=== PATIENT | male | born 1990 | race Caucasian/White ===

== ENCOUNTER 2017-01-07 11:31 | Emergency (ER) | payer MEDICAID ==
[2017-01-07 11:52] VITALS: BP 147/118
[2017-01-07] MEDS ORDERED: Ketorolac 60 MG/2 ML SDV IM ONE (12:56)
[2017-01-07] MEDS ORDERED: Cyclobenzaprine 10 MG Tab PO ONE (12:56)
--- NOTE | 2017-01-07 12:58 | EDM.PDOC ---
ED HPI LOWER BACK PAIN/INJURY - General Chief Complaint: Back Pain or Injury Stated Complaint: BACK PAIN/SPASMS Time Seen by Provider: 01/07/17 12:57 Source: Reports: Patient, Family History Limitations: Reports: No limitations - History of Present Illness INITIAL COMMENTS - FREE TEXT/NARRATIVE: Pt bent over to package pick up things off of the floor. He felt something go out and he has had severe pain accross his back since that time. It is a little more on the left and it does go down over the buttock. Timing/Duration: Reports: Hour(s):, Getting worse Location: Reports: lower Place: home Associated Symptoms: Reports: Difficulty walking, Other (Pt is noting severe pain in his lower back. ) - Related Data Allergies/ADRs: Allergies Allergy/AdvReac Type Severity Reaction Status Date / Time No Known Allergies Allergy Verified 01/24/16 15:22 Home Meds: Home Meds NK [No Known Home Meds] 01/24/16 [History] Past Medical History Psychiatric History: Reports: Anxiety - Past Surgical History Other Musculoskeletal Surgeries/Procedures:: Left ACL reconstruction Social & Family History - Family History Cardiac: Reports: Arrhythmia Other Cardiac Family History: Ablation Respiratory: Reports: Asthma Psychiatric: Reports: Anxiety - Tobacco Use Smoking Status *Q: Current Every Day Smoker Years of Tobacco use: 4 Packs/Tins Daily: 0.5 - Recreational Drug Use Recreational Drug Use: Yes Drug Use in Last 12 Months: Yes Recreational Drug Type: Reports: Marijuana/Hashish Recreational Drug Use Frequency: Weekly ED ROS GENERAL - Review of Systems Review Of Systems: See Below Constitutional: Reports: no symptoms HEENT: Reports: No symptoms Respiratory: Reports: No Symptoms Cardiovascular: Reports: No symptoms Endocrine: Reports: no symptoms GI/Abdominal: Reports: No symptoms : Reports: no symptoms ED EXAM,LOWER BACK PAIN/INJURY - Physical Exam Exam: See Below Text/Narrative:: Pt has severe low back pain. This is more on the left and it goes down over the left buttock. He has increased pain when his left leg is lifted. Exam Limited By: No limitations General Appearance: alert, severe distress Ears: normal TMs Nose: normal inspection Throat/Mouth: Normal inspection Head: atraumatic Neck: normal inspection Respiratory/Chest: no respiratory distress Cardiovascular: regular rate, rhythm GI/Abdominal: soft, non tender Rectal (Males) Exam: Deferred Back Exam: other ( tender over the lower back and left buttock area. ) Extremities: normal inspection Course - Vital Signs Last Recorded V/S: Last Vital Signs Temp 36.7 C 01/07/17 11:50 Pulse 92 01/07/17 11:50 Resp 14 01/07/17 11:50 BP 147/118 H 01/07/17 11:50 Pulse Ox 99 01/07/17 11:50 - Orders/Labs/Meds Orders: Active Orders 24 hr Category Date Time Status Lumbar Spine Min 4V [CR] Stat Exams 01/07/17 12:56 Taken Meds: Medications Discontinued Medications Generic Name Dose Route Start Last Admin Trade Name Freq PRN Reason Stop Dose Admin Cyclobenzaprine HCl 10 mg 01/07/17 12:56 01/07/17 13:17 Flexeril PO 01/07/17 12:57 10 mg ONETIME ONE Administration Hydromorphone HCl 1 mg 01/07/17 14:00 01/07/17 14:22 Dilaudid IM 01/07/17 14:01 1 mg ONETIME ONE Administration Hydromorphone HCl 1 mg 01/07/17 14:43 Dilaudid IM 01/07/17 14:44 ONETIME ONE Ketorolac Tromethamine 60 mg 01/07/17 12:56 01/07/17 13:19 Toradol IM 01/07/17 12:57 60 mg ONETIME ONE Administration - Re-Assessments/Exams Free Text/Narrative Re-Assessment/Exam: 01/07/17 14:57 Lumbar spine was obtained which showed good alignmenr and wide open interspaces. Departure - Departure Time of Disposition: 14:58 Disposition: Home, Self-Care 01 Condition: fair Clinical Impression: Lumbar back pain Forms: ED Department Discharge Care Plan Goals: ice to the low back, rest, flexeril 10mg tid, at nite instead of taking one use 1 and1/2. motrin 600mg tid, percocet 5/325 q6h prn for pain, appt in [place] for recheck sunday if not better he may need an MRI - My Orders Last 24 Hours: My Active Orders 01/07/17 12:56 Lumbar Spine Min 4V [CR] Stat - Assessment/Plan Last 24 Hours: My Active Orders 01/07/17 12:56 Lumbar Spine Min 4V [CR] Stat
[2017-01-07] MEDS ORDERED: HYDROmorphone 1 MG/ML Syringe IM ONE ×2 (14:00→14:43)
--- NOTE | 2017-01-08 09:23 | CR ---
Lumbar Spine Min 4V HISTORY: severe pain in lower back. FINDINGS: Lumbar vertebral bodies appear intact and in satisfactory alignment. No compression fracture or dis k space narrowing is seen. Spinous processes, posterior elements, and pedicles appear intact and in satisfactory alignment. Perivertebral soft tissues appear normal. IMPRESSION: No acute lumbar spine abnormality identified.
== END 2017-01-07 15:13 | disposition home or self-care (01) ==
LOC: JP.ED 11:31
DX: M54.5 Low back pain (principal); F17.210 Nicotine dependence, cigarettes, uncomplicated
CPT/HCPCS: 72110; 96372; 99284; A9270; J1170; J1885

== ENCOUNTER 2018-05-26 12:43 | Emergency (ER) | payer MEDICAID ==
[2018-05-26 13:49] VITALS: BP 130/97
--- NOTE | 2018-05-26 14:25 | EDM.PDOC ---
ED HPI GENERAL MEDICAL PROBLEM - General Chief Complaint: Lower Extremity Injury/Pain Stated Complaint: BLOOD CLOT IN LT LEG?? Time Seen by Provider: 05/26/18 14:15 Source of Information: Reports: Patient, RN History Limitations: Reports: No Limitations - History of Present Illness INITIAL COMMENTS - FREE TEXT/NARRATIVE: 27 yo male who lives with his mother and has no doctor presents for L calf pain getting worse over the past week. Does not recall injury. Has no SOB or pleuritic chest pain. Thinks that area is a little swollen. Lives in the [facility]. 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) (none) - Related Data Allergies Allergy/AdvReac Type Severity Reaction Status Date / Time No Known Allergies Allergy Verified 05/26/18 13:39 Home Meds: Home Meds Rivaroxaban [Xarelto] 15 mg PO Q12H #41 tablet 05/26/18 [Rx] Past Medical History Respiratory History: Reports: Asthma Psychiatric History: Reports: Anxiety - Past Surgical History Other Musculoskeletal Surgeries/Procedures:: Left ACL reconstruction Social & Family History - Family History Cardiac: Reports: Arrhythmia Other Cardiac Family History: Ablation Respiratory: Reports: Asthma Psychiatric: Reports: Anxiety - Tobacco Use Smoking Status *Q: Current Every Day Smoker Years of Tobacco use: 3 Packs/Tins Daily: 0.5 Review of Systems - Review of Systems Review Of Systems: See Below Constitutional: Reports: No Symptoms Eyes: Reports: No Symptoms Ears: Reports: No Symptoms Mouth/Throat: Reports: No Symptoms Respiratory: Reports: No Symptoms. Denies: Shortness of Breath, Pleuritic Chest Pain Cardiovascular: Reports: No Symptoms GI/Abdominal: Reports: No Symptoms Musculoskeletal: Reports: Leg Pain (L calf), Other (no swelling of the L ankle or distal leg, calf pain only.) Skin: Reports: Bruising (L leg just below the knee, old) Neurological: Reports: No Symptoms ED EXAM, GENERAL - Physical Exam Exam: See Below Exam Limited By: No Limitations General Appearance: Alert, WD/WN, No Apparent Distress, Obese Eye Exam: Bilateral Eye: Normal Inspection Ears: Normal External Exam, Normal Canal, Hearing Grossly Normal, Normal TMs Ear Exam: Bilateral Ear: Auricle Normal, Canal Normal Nose: Normal Inspection, Normal Mucosa, No Blood Throat/Mouth: Normal Inspection, Normal Lips, Normal Oropharynx, Normal Voice, No Airway Compromise Head: Atraumatic, Normocephalic Neck: Normal Inspection, Supple, Non-Tender Respiratory/Chest: No Respiratory Distress, Lungs Clear, Normal Breath Sounds, No Accessory Muscle Use Cardiovascular: Regular Rate, Rhythm, No Edema Extremities: Leg Pain (L calf tender with no edema distal to the calf. ). No: Limited Range of Motion, Redness Neurological: Alert, Oriented, CN II-XII Intact, Normal Cognition, No Motor/ Sensory Deficits Psychiatric: Normal Affect, Normal Mood Skin Exam: Warm, Dry, Intact, Normal Color, No Rash Course - Vital Signs Last Recorded V/S: Last Vital Signs Temp 36.5 C 05/26/18 13:48 Pulse 89 05/26/18 13:48 Resp 14 05/26/18 13:48 BP 130/97 H 05/26/18 13:48 Pulse Ox 95 05/26/18 13:48 - Orders/Labs/Meds Orders: Active Orders 24 hr Category Date Time Status VL Duplex Lwr Ext Veins Ltd Lt [US] Stat Exams 05/26/18 15:08 Taken Labs: Laboratory Tests 05/26/18 Range/Units 14:20 D-Dimer, Quantitative 800 H (0.0-400.0) ng/mL - Radiology Interpretation Free Text/Narrative:: Venous doppler of L calf-DVT present Departure - Departure Time of Disposition: 16:55 Disposition: Home, Self-Care 01 Condition: Fair Clinical Impression: DVT of leg (deep venous thrombosis) Qualifiers: Affected thrombotic vein of extremity: tibial Chronicity: acute Laterality: left Qualified Code(s): I82.442 - Acute embolism and thrombosis of left tibial vein - Discharge Information *PRESCRIPTION DRUG MONITORING PROGRAM REVIEWED*: Not Applicable *COPY OF PRESCRIPTION DRUG MONITORING REPORT IN PATIENT JOSE: Not Applicable Instructions: Deep Vein Thrombosis Referrals: PCP,None [Primary Care Provider] - Forms: ED Department Discharge Additional Instructions: Take Xarelto 15 mg every 12 hrs with food. Keep leg elevated above your heart as much as possible. Relative rest. Recheck with a doctor of your choice within the week. Return to the ER if you develop chest pain or SOB. Be careful to avoid trauma as you will be at higher risk to bleed while on this medicine. - My Orders Last 24 Hours: My Active Orders 05/26/18 15:08 VL Duplex Lwr Ext Veins Ltd Lt [US] Stat - Assessment/Plan Last 24 Hours: My Active Orders 05/26/18 15:08 VL Duplex Lwr Ext Veins Ltd Lt [US] Stat
[2018-05-26] MEDS ORDERED: Rivaroxaban 15 MG Tab PO SCH (17:00)
== END 2018-05-26 16:58 | disposition home or self-care (01) ==
LOC: JP.ED 12:43
DX: I82.442 Acute embolism and thrombosis of left tibial vein (principal); F17.210 Nicotine dependence, cigarettes, uncomplicated
CPT/HCPCS: 36415; 85379; 93971; 99284; A9270

== ENCOUNTER 2019-01-19 09:49 | Emergency (ER) | payer MEDICAID ==
[2019-01-19 10:52] VITALS: BP 146/96
[2019-01-19] MEDS ORDERED: Ondansetron 4 MG/2 ML SDV IVPUSH ONE (11:11)
[2019-01-19] MEDS ORDERED: MVI, Adult with Vitamin K 10 ML, Thiamine 200 MG, Folic Acid 1 MG, Magnesium Sulfate 2 ... IV ONE ×10 (11:11→11:30)
--- NOTE | 2019-01-19 11:25 | EDM.PDOC ---
ED HPI GENERAL MEDICAL PROBLEM - General Chief Complaint: Gastrointestinal Problem Stated Complaint: VOMITING, TROUBLE BREATHING Time Seen by Provider: 01/19/19 11:18 Source of Information: Reports: Patient, RN Notes Reviewed History Limitations: Reports: No Limitations - History of Present Illness INITIAL COMMENTS - FREE TEXT/NARRATIVE: 28-year-old gentleman presents emergency department today with complaint of nausea and vomiting, he denies any fevers sick contacts states been sick for about 20 hours unable to keep anything down does use a large amount of alcohol - Related Data Allergies Allergy/AdvReac Type Severity Reaction Status Date / Time No Known Allergies Allergy Verified 01/19/19 10:46 Home Meds: Home Meds Rivaroxaban [Xarelto] 20 mg PO DAILY 07/26/18 [History] Past Medical History Cardiovascular History: Reports: Blood Clots/VTE/DVT Respiratory History: Reports: Asthma Neurological History: Reports: Concussion, Migraines Psychiatric History: Reports: Addiction, Anxiety, Depression Hematologic History: Reports: Anticoagulation Therapy - Infectious Disease History Infectious Disease History: Reports: Chicken Pox - Past Surgical History Musculoskeletal Surgical History: Reports: Other (See Below) Other Musculoskeletal Surgeries/Procedures:: Left ACL reconstruction Social & Family History - Family History Cardiac: Reports: Arrhythmia Other Cardiac Family History: Ablation Respiratory: Reports: Asthma Psychiatric: Reports: Anxiety - Tobacco Use Smoking Status *Q: Current Every Day Smoker Years of Tobacco use: 6 Packs/Tins Daily: 1 - Caffeine Use Caffeine Use: Reports: Coffee, Soda - Alcohol Use Number of Drinks Per Day: 10 Date of Last Drink: 01/18/19 - Recreational Drug Use Recreational Drug Type: Reports: Marijuana/Hashish ED ROS GENERAL - Review of Systems Review Of Systems: See Below Constitutional: Reports: No Symptoms HEENT: Reports: No Symptoms Respiratory: Reports: No Symptoms Cardiovascular: Reports: No Symptoms (No blood from) GI/Abdominal: Reports: Abdominal Pain, Nausea, Vomiting : Reports: No Symptoms Musculoskeletal: Reports: No Symptoms ED EXAM, GI/ABD - Physical Exam Exam: See Below Exam Limited By: No Limitations General Appearance: Alert, WD/WN, No Apparent Distress Respiratory/Chest: No Respiratory Distress, Lungs Clear, Normal Breath Sounds, No Accessory Muscle Use, Chest Non-Tender Cardiovascular: Regular Rate, Rhythm, No Murmur GI/Abdominal Exam: Normal Bowel Sounds, Soft, Non-Tender Course - Vital Signs Last Recorded V/S: Last Vital Signs Temp 98.5 F 01/19/19 10:53 Pulse 119 H 01/19/19 10:53 Resp 20 01/19/19 10:53 BP 146/96 H 01/19/19 10:53 Pulse Ox 96 01/19/19 10:53 - Orders/Labs/Meds Labs: Laboratory Tests 01/19/19 01/19/19 01/19/19 Range/Units 11:15 11:15 11:15 WBC 10.3 (4.5-11.0) K/uL RBC 4.52 (4.30-5.90) M/uL Hgb 15.9 H (12.0-15.0) g/dL Hct 47.1 (40.0-54.0) % MCV 104 H (80-98) fL MCH 35 H (27-31) pg MCHC 34 (32-36) % Plt Count 267 (150-400) K/uL Neut % (Auto) 85 H (36-66) % Lymph % (Auto) 9 L (24-44) % [place] % (Auto) 6 (2-6) % Eos % (Auto) 0 L (2-4) % Baso % (Auto) 0 (0-1) % D-Dimer, Quantitative (0.0-400.0) ng/mL Sodium 138 L (140-148) mmol/L Potassium 3.5 L (3.6-5.2) mmol/L Chloride 93 L (100-108) mmol/L Carbon Dioxide 29 (21-32) mmol/L Anion Gap 19.5 H (5.0-14.0) mmol/L BUN 7 (7-18) mg/dL Creatinine 1.4 H (0.8-1.3) mg/dL Est Cr Clr Drug Dosing 95.57 mL/min Estimated GFR (MDRD) > 60 (>60) Glucose 91 (74-106) mg/dL Lactic Acid 8.0 H (0.4-2.0) mmol/L Calcium 9.9 (8.5-10.1) mg/dL Total Bilirubin 3.1 H (0.2-1.0) mg/dL AST 100 H (15-37) U/L ALT 69 (12-78) U/L Alkaline Phosphatase 83 (46-116) U/L Total Protein 7.9 (6.4-8.2) g/dL Albumin 3.7 (3.4-5.0) g/dL Globulin 4.2 H (2.3-3.5) g/dL Albumin/Globulin Ratio 0.9 L (1.2-2.2) Urine Color Urine Appearance Urine pH (4.5-8.0) Ur Specific [place] (1.008-1.030) Urine Protein (NEGATIVE) mg/dL Urine Glucose (UA) (NEGATIVE) mg/dL Urine Ketones (NEGATIVE) mg/dL Urine Occult Blood (NEGATIVE) Urine Nitrite (NEGAITVE) Urine Bilirubin (NEGATIVE) Urine Urobilinogen (NORMAL) mg/dL Ur Leukocyte Esterase (NEGATIVE) Urine RBC (0-5) Urine WBC (0-5) Ur Epithelial Cells Amorphous Sediment Urine Bacteria Urine Mucus Urine Other 01/19/19 01/19/19 Range/Units 15:07 15:26 WBC (4.5-11.0) K/uL RBC (4.30-5.90) M/uL Hgb (12.0-15.0) g/dL Hct (40.0-54.0) % MCV (80-98) fL MCH (27-31) pg MCHC (32-36) % Plt Count (150-400) K/uL Neut % (Auto) (36-66) % Lymph % (Auto) (24-44) % Heard % (Auto) (2-6) % Eos % (Auto) (2-4) % Baso % (Auto) (0-1) % D-Dimer, Quantitative < 100 (0.0-400.0) ng/mL Sodium (140-148) mmol/L Potassium (3.6-5.2) mmol/L Chloride (100-108) mmol/L Carbon Dioxide (21-32) mmol/L Anion Gap (5.0-14.0) mmol/L BUN (7-18) mg/dL Creatinine (0.8-1.3) mg/dL Est Cr Clr Drug Dosing mL/min Estimated GFR (MDRD) (>60) Glucose (74-106) mg/dL Lactic Acid (0.4-2.0) mmol/L Calcium (8.5-10.1) mg/dL Total Bilirubin (0.2-1.0) mg/dL AST (15-37) U/L ALT (12-78) U/L Alkaline Phosphatase (46-116) U/L Total Protein (6.4-8.2) g/dL Albumin (3.4-5.0) g/dL Globulin (2.3-3.5) g/dL Albumin/Globulin Ratio (1.2-2.2) Urine Color [place] Urine Appearance Clear Urine pH 8.0 (4.5-8.0) Ur Specific [place] 1.015 (1.008-1.030) Urine Protein Negative (NEGATIVE) mg/dL Urine Glucose (UA) Normal (NEGATIVE) mg/dL Urine Ketones 15 H (NEGATIVE) mg/dL Urine Occult Blood Negative (NEGATIVE) Urine Nitrite Negative (NEGAITVE) Urine Bilirubin Negative (NEGATIVE) Urine Urobilinogen Normal (NORMAL) mg/dL Ur Leukocyte Esterase Small (NEGATIVE) Urine RBC Not seen (0-5) Urine WBC 5-10 H (0-5) Ur Epithelial Cells Few Amorphous Sediment Not seen Urine Bacteria Few Urine Mucus Moderate Urine Other Meds: Medications Discontinued Medications Generic Name Dose Route Start Last Admin Trade Name Freq PRN Reason Stop Dose Admin Benzocaine/Menthol 1 lozenge 01/19/19 16:22 Cepacol Sore Throat MUCMEM 01/19/19 16:23 NOW STA Multivitamins/Minerals 10 ml/ 1,016.2 mls @ 500 mls/hr 01/19/19 11:30 11:37 Thiamine HCl 200 mg/ Folic IV 01/19/19 13:31 500 mls/hr Acid 1 mg/ Magnesium Sulfate 2 ONETIME ONE Administration gm/ Dextrose/Lactated Ringer' s Lactated Ringer's 1,000 mls @ 999 mls/hr 01/19/19 13:40 01/19/19 13:45 Ringers, Lactated IV 01/19/19 14:40 999 mls/hr BOLUS ONE Administration Lactated Ringer's 1,000 mls @ 999 mls/hr 01/19/19 14:42 Ringers, Lactated IV 01/19/19 15:42 BOLUS ONE Ondansetron HCl 4 mg 01/19/19 11:11 01/19/19 11:37 Zofran IVPUSH 01/19/19 11:12 4 mg ONETIME ONE Administration Departure - Departure Time of Disposition: 16:30 Disposition: Home, Self-Care 01 Condition: Good Clinical Impression: Gastroenteritis - Discharge Information Referrals: PCP,None [Primary Care Provider] - Forms: ED Department Discharge Additional Instructions: Continue to use Zofran as needed for nausea and vomiting symptoms, Please followup with your primary care provider in 3-5 days if not better, please call return to the emergency department with worsening of symptoms. - Assessment/Plan Plan: Assessment Acuity = acute Site and laterality = gastroenteritis complicated in a patient with history of significant alcohol abuse Etiology = unknown etiology Manifestations = nausea, vomiting, dehydration Location of injury = Home Lab values = d-dimer is negative CBC unremarkable creatinine elevated to 1.4 consistent with acute renal failure stage GII lactic acid elevated 8.0 consistent with nausea and vomiting total bilirubin elevated 3.1 consistent hyperbilirubinemia Plan Good relief with Zofran and 2 L of fluids plan is discharge home with Zofran 4 mg ODT 1 tab by mouth 3 times a day when necessary total #10 follow-up primary care 3-5 days if no improvement This note was dictated using LUMOback voice recognition software please call with any questions on syntax or grammar.
[2019-01-19] MEDS ORDERED: Lactated Ringers 1,000 ML IV ONE ×2 (13:40→14:42)
[2019-01-19] MEDS ORDERED: Benzocaine/Cetylpyridinium/Menthol Lozenge MUCMEM STA (16:22)
== END 2019-01-19 16:49 | disposition home or self-care (01) ==
LOC: JP.ED 09:49
DX: K52.9 Noninfective gastroenteritis and colitis, unspecified (principal); F17.210 Nicotine dependence, cigarettes, uncomplicated
CPT/HCPCS: 36415; 80053; 81001; 83605; 85025; 85379; 96361; 96365; 96366; 96375; 99284; A9270; J2405; J3411; J3475; J7042; J7120; J3490

== ENCOUNTER 2019-03-22 12:53 | Emergency (ER) | payer MEDICAID ==
[2019-03-22 13:41] VITALS: BP 140/92
--- NOTE | 2019-03-22 13:49 | EDM.PDOC ---
ED HPI GENERAL MEDICAL PROBLEM - General Chief Complaint: Lower Extremity Injury/Pain Stated Complaint: CONCERNED ABOUT BLOOD CLOT Time Seen by Provider: 03/22/19 13:47 Source of Information: Reports: Patient History Limitations: Reports: No Limitations - History of Present Illness INITIAL COMMENTS - FREE TEXT/NARRATIVE: about 6 monthes ago pt had a blood clot in his left lower leg. He was placed on xrelto and still is on this. he has alot of swelling in the left leg and now this has become painful. Onset: Gradual, Other (last 2-3 days. ) Duration: Hour(s): Location: Reports: Lower Extremity, Left Associated Symptoms: Reports: No Other Symptoms Left Lower Leg Pain Score (Numeric/FACES): 5 - Related Data Allergies Allergy/AdvReac Type Severity Reaction Status Date / Time No Known Allergies Allergy Verified 01/19/19 10:46 Home Meds: Home Meds Rivaroxaban [Xarelto] 20 mg PO DAILY 07/26/18 [History] Past Medical History Cardiovascular History: Reports: Blood Clots/VTE/DVT Respiratory History: Reports: Asthma Neurological History: Reports: Concussion, Migraines Psychiatric History: Reports: Addiction, Anxiety, Depression Hematologic History: Reports: Anticoagulation Therapy - Infectious Disease History Infectious Disease History: Reports: Chicken Pox - Past Surgical History Musculoskeletal Surgical History: Reports: Other (See Below) Other Musculoskeletal Surgeries/Procedures:: Left ACL reconstruction Social & Family History - Family History Cardiac: Reports: Arrhythmia Other Cardiac Family History: Ablation Respiratory: Reports: Asthma Psychiatric: Reports: Anxiety - Tobacco Use Smoking Status *Q: Current Every Day Smoker Years of Tobacco use: 9 Packs/Tins Daily: 1 - Caffeine Use Caffeine Use: Reports: Coffee - Recreational Drug Use Recreational Drug Use: No Review of Systems - Review of Systems Review Of Systems: See Below Constitutional: Reports: No Symptoms Eyes: Reports: No Symptoms Ears: Reports: No Symptoms Nose: Reports: No Symptoms Mouth/Throat: Reports: No Symptoms Respiratory: Reports: No Symptoms Cardiovascular: Reports: No Symptoms GI/Abdominal: Reports: No Symptoms Musculoskeletal: Reports: Other ( swelling and tenderness in the left lower leg. 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 ) Neurological: Reports: No Symptoms Psychiatric: Reports: No Symptoms ED EXAM, GENERAL - Physical Exam Exam: See Below Free Text/Narrative:: pt arrived with pain in his left lower leg he has sig swelling that did not go down during the nite. He had a blood clot in his leg and he is on xarelto. Exam Limited By: No Limitations General Appearance: Alert, Moderate Distress Ears: Normal TMs Nose: Normal Inspection Throat/Mouth: Normal Inspection Head: Atraumatic Neck: Normal Inspection Respiratory/Chest: No Respiratory Distress Cardiovascular: Regular Rate, Rhythm GI/Abdominal: Soft, Non-Tender, No Abnormal Bruit (Male) Exam: Deferred Rectal (Males) Exam: Deferred Extremities: Other (left leg is swollen and is tender to palpate , He has lot of tenderness behind his knee. ) Neurological: Alert, Oriented, Normal Cognition Psychiatric: Normal Affect Course - Vital Signs Last Recorded V/S: Last Vital Signs Temp 37.1 C 03/22/19 13:40 Pulse 108 H 03/22/19 13:40 Resp 16 03/22/19 13:40 BP 140/92 H 03/22/19 13:40 Pulse Ox 96 03/22/19 13:40 - Orders/Labs/Meds Labs: Laboratory Tests 03/22/19 03/22/19 Range/Units 14:26 14:26 WBC 6.6 (4.5-11.0) K/uL RBC 4.27 L (4.30-5.90) M/uL Hgb 14.9 (12.0-15.0) g/dL Hct 43.5 (40.0-54.0) % MCV 102 H (80-98) fL MCH 35 H (27-31) pg MCHC 34 (32-36) % Plt Count 240 (150-400) K/uL Neut % (Auto) 57 (36-66) % Lymph % (Auto) 30 (24-44) % [place] % (Auto) 9 H (2-6) % Eos % (Auto) 3 (2-4) % Baso % (Auto) 1 (0-1) % Sodium 142 (140-148) mmol/L Potassium 3.4 L (3.6-5.2) mmol/L Chloride 102 (100-108) mmol/L Carbon Dioxide 32 (21-32) mmol/L Anion Gap 11.4 (5.0-14.0) mmol/L BUN 4 L (7-18) mg/dL Creatinine 1.0 (0.8-1.3) mg/dL Est Cr Clr Drug Dosing 133.79 mL/min Estimated GFR (MDRD) > 60 (>60) Glucose 119 H (74-106) mg/dL Calcium 8.9 (8.5-10.1) mg/dL Total Bilirubin 1.1 H D (0.2-1.0) mg/dL AST 201 H D (15-37) U/L ALT 120 H (12-78) U/L Alkaline Phosphatase 94 (46-116) U/L Total Protein 7.3 (6.4-8.2) g/dL Albumin 3.4 (3.4-5.0) g/dL Globulin 3.9 H (2.3-3.5) g/dL Albumin/Globulin Ratio 0.9 L (1.2-2.2) - Re-Assessments/Exams Free Text/Narrative Re-Assessment/Exam: 03/22/19 15:29 pt had a US of the left leg which was swollwn. This was neg for dvt. He has evidence of the old clot. Pt does have elevated liver enzymes. 03/22/19 15:33 03/22/19 15:40 pt was previously scheduled for surgery on his veins with Dr Mas. Pt quit drinking and is now back drinking again. His liver enzymes are up. He was informed of that. 03/22/19 15:42 03/28/19 07:11 Departure - Departure Time of Disposition: 15:43 Disposition: Home, Self-Care 01 Condition: Fair Clinical Impression: Cellulitis of left leg - Discharge Information Instructions: Cellulitis, Adult, [id number] Referrals: PCP,None [Primary Care Provider] - Forms: ED Department Discharge Care Plan Goals: no work for the next 2 days, elevate leg, moit warm packs to the area, keflex 500mg tid, appt with Dr Mas, cont xarelto. -- refill given. tylenol for discomfort.
--- NOTE | 2019-03-22 15:54 | CRLUS ---
INDICATION: Swelling and pain of left lower extremity TECHNIQUE: Ultrasound venous duplex lower left extremity. Compression venous exam was performed using epps-scale, color Doppler, and spectral Doppler analysis. COMPARISON: None. FINDINGS: Sonographic imaging demonstrates the left common femoral, deep femoral, femoral, popliteal, posterior tibial and greater saphenous and the contralateral right common femoral veins to be fully compressible with normal color Doppler blood flow. IMPRESSION: No evidence of left lower extremity deep venous thrombosis. Dictated by Kathrin Sarabia MD @ 03/22/2019 3:52:45 PM Dictated by: Kathrin Sarabia MD @ 03/22/2019 15:52:56 (Electronically Signed)
== END 2019-03-22 15:58 | disposition home or self-care (01) ==
LOC: JP.ED 12:53
DX: L03.116 Cellulitis of left lower limb (principal); J45.909 Unspecified asthma, uncomplicated; F41.9 Anxiety disorder, unspecified; F32.9 Major depressive disorder, single episode, unspecified; F17.210 Nicotine dependence, cigarettes, uncomplicated; Z79.01 Long term (current) use of anticoagulants
CPT/HCPCS: 36415; 80053; 85025; 93971-LT; 99284-25

== ENCOUNTER 2019-06-07 12:44 | Inpatient (IN) | payer MEDICAID ==
[2019-06-07] MEDS ORDERED: Thiamine 100 MG Tab PO ONE (13:11)
[2019-06-07] MEDS ORDERED: Magnesium Oxide 400 MG Tab PO ONE (13:11)
[2019-06-07] MEDS ORDERED: Lactated Ringers 1,000 ML IV SCH (13:15)
[2019-06-07] MEDS ORDERED: Metoclopramide 10 MG/2 ML SDV IVPUSH ONE (13:17)
[2019-06-07] MEDS ORDERED: Sucralfate Suspension 1 GM/10 ML Cup PO ONE (13:18)
[2019-06-07] MEDS ORDERED: LORazepam 2 MG/ML SDV IVPUSH ONE ×2 (13:20→16:05)
--- NOTE | 2019-06-07 13:21 | EDM.PDOC ---
ED HPI GENERAL MEDICAL PROBLEM - General Chief Complaint: Abdominal Pain Stated Complaint: DEHYDRATED, VOMITING, YELLOW SKIN Time Seen by Provider: 06/07/19 13:20 Source of Information: Reports: Patient History Limitations: Reports: No Limitations - History of Present Illness INITIAL COMMENTS - FREE TEXT/NARRATIVE: Alert 28 yo male whom presents for abdominal discomfort, nausea. vomiting and yellowish discoloration of the skin. Patient is a daily alcohol drinker more than 1 liter per day for more than 4 years. Patient describes abdominal pain and aching intermittent and right upper abdomen and periumbilical area. Patient 's last alcohol drink was last evening unsure of time. Patient attempted to drink alcohol this am but vomited. Patient denies history of alcohol withdrawal but noted sweating and auditory hallucination overnight (her voices calling his name). Patient initially denied constipation or diarrhea but after further questioning her has had BM which are mucus for the last 2-3 days. Patient had diarrhea the week prior. Patient has had symptoms the last 2-3 days but after further questioning symptoms have been present for more than 2 weeks. Patient denies fever, chills or URI symptoms. Patient has had a cough for the last week which is not productive but coughing to the point of vomiting. Patient has noted painful calves the last 2-3 days. Patient's appetite has been decreased for the last months. Patient complains of nausea, stomach discomfort but epigastric right upper abdomen and haven umbilical area. Patient has had swelling in bilateral lower legs. He has had rashes and open wound which do not heal well in his lower abdomen. Abdominal Pain Score (Numeric/FACES): 6 - Related Data Allergies Allergy/AdvReac Type Severity Reaction Status Date / Time No Known Allergies Allergy Verified 06/07/19 13:00 Home Meds: Home Meds Rivaroxaban [Xarelto] 20 mg PO DAILY 07/26/18 [History] Past Medical History Cardiovascular History: Reports: Blood Clots/VTE/DVT Respiratory History: Reports: Asthma Neurological History: Reports: Concussion, Migraines Psychiatric History: Reports: Addiction, Anxiety, Depression Hematologic History: Reports: Anticoagulation Therapy - Infectious Disease History Infectious Disease History: Reports: Chicken Pox - Past Surgical History Musculoskeletal Surgical History: Reports: Other (See Below) Other Musculoskeletal Surgeries/Procedures:: Left ACL reconstruction Social & Family History - Family History Cardiac: Reports: Arrhythmia Other Cardiac Family History: Ablation Respiratory: Reports: Asthma Psychiatric: Reports: Anxiety - Tobacco Use Smoking Status *Q: Current Every Day Smoker Years of Tobacco use: 9 Packs/Tins Daily: 1 - Caffeine Use Caffeine Use: Reports: Soda - Alcohol Use Days Per Week of Alcohol Use: 7 Number of Drinks Per Day: 20 Total Drinks Per Week: 140 Date of Last Drink: 06/06/19 Time of Last Drink: 16:00 - Recreational Drug Use Recreational Drug Use: Yes Recreational Drug Type: Reports: Marijuana/Hashish Recreational Drug Use Frequency: Socially ED ROS GENERAL - Review of Systems Review Of Systems: ROS reveals no pertinent complaints other than HPI. (limited due to patient's general malaise and discomfort) Constitutional: Reports: Chills, Malaise, Weakness, Diaphoresis, Decreased Appetite HEENT: Reports: No Symptoms, Other (yellowing of sclera) Respiratory: Reports: No Symptoms Cardiovascular: Reports: Edema, Lightheadedness, Palpitations Endocrine: Reports: Fatigue GI/Abdominal: Reports: Abdominal Pain, Anorexia, Decreased Appetite, Nausea, Vomiting : Reports: No Symptoms Musculoskeletal: Reports: Leg Pain, Joint Swelling Skin: Reports: Jaundice Neurological: Reports: Headache, Difficulty Walking, Weakness, Other ( ligthheadedness ). Denies: Dizziness, Syncope Psychiatric: Reports: Anxiety Hematologic/Lymphatic: Reports: No Symptoms Immunologic: Reports: No Symptoms ED EXAM, GI/ABD - Physical Exam Exam: See Below Exam Limited By: Physical Impairment General Appearance: Alert, WD/WN, Moderate Distress, Obese, Other (jaundice and scleral icterus ) Ears: Normal External Exam, Hearing Grossly Normal Nose: Normal Inspection, Normal Mucosa Throat/Mouth: Normal Inspection (dry ), Normal Lips, Normal Teeth, Normal Gums, Normal Oropharynx, Normal Voice, No Airway Compromise Head: Atraumatic, Normocephalic Neck: Normal Inspection, Supple, Non-Tender, Full Range of Motion Respiratory/Chest: No Respiratory Distress, Lungs Clear, Normal Breath Sounds, No Accessory Muscle Use, Chest Non-Tender Cardiovascular: Normal Peripheral Pulses, Regular Rate, Rhythm, Tachycardia. No : No Edema GI/Abdominal Exam: Soft, Tender (epigastric, right upper and periumbilical abdomen), Hepatomegaly. No: Guarding, Rigid, Rebound (Male) Exam: Deferred Rectal (Males) Exam: Deferred Back Exam: Normal Inspection, Full Range of Motion, NT Extremities: Normal Inspection, Normal Range of Motion, No Pedal Edema, Normal Capillary Refill, Pedal Edema, Leg Pain (calf discomfort) Neurological: Alert, Oriented, CN II-XII Intact, Normal Cognition, Normal Reflexes, No Motor/Sensory Deficits, Abnormal Gait Psychiatric: Flat Affect Skin Exam: Warm, Dry, Jaundice EKG INTERPRETATION EKG Date: 06/07/19 Time: 13:55 Rhythm: Other (Sinus tachycardia) P-Wave: Present QRS: Normal ST-T: Other (nonspecific changes in pericordial LEADS) QT: Prolonged (501) Comparison: NA - No Prior EKG Course - Vital Signs Last Recorded V/S: Last Vital Signs Temp 36.7 C 06/07/19 20:00 Pulse 103 H 06/07/19 22:00 Resp 15 06/07/19 22:00 BP 132/78 06/07/19 22:00 Pulse Ox 94 L 06/07/19 22:00 - Orders/Labs/Meds Orders: Active Orders 24 hr Category Date Time Status Cardiac Monitoring [RC] .As Directed Care 06/07/19 13:11 Inactive Vital Signs [RC] Q1H Care 06/07/19 13:12 Inactive CULTURE BLOOD [BC] Urgent Lab 06/07/19 13:30 Received CULTURE BLOOD [BC] Urgent Lab 06/07/19 13:37 Received Blood Culture x2 Reflex Set [OM.PC] Urgent Oth 06/07/19 13:12 Ordered EKG 12 Lead [EK] Urgent Ther 06/07/19 13:17 Stop Req Medication Orders Apixaban (Eliquis) 5 mg PO BID [facility] Last Admin: 06/07/19 21:39 Dose: 5 mg Folic Acid (Folic Acid) 1 mg PO DAILY [facility] Gabapentin (Neurontin) 400 mg PO TID [facility] Stop: 06/12/19 14:01 Last Admin: 06/07/19 21:38 Dose: 400 mg Magnesium Sulfate 2 gm/ Premix 50 mls @ 12.5 mls/hr IV Q6H [facility] Stop: 06/08/19 12:59 Last Admin: 06/07/19 21:40 Dose: 12.5 mls/hr Potassium Chloride/Sodium Chloride (Normal Saline With 20 Meq Kcl) 1,000 mls @ 125 mls/hr IV ASDIRECTED [facility] Last Admin: 06/07/19 22:16 Dose: 125 mls/hr Ibuprofen (Motrin) 600 mg PO Q6H PRN PRN Reason: Pain/Fever Lorazepam (Ativan) 0.5 mg IVPUSH Q4H PRN PRN Reason: Nausea/Vomiting Lorazepam (Ativan) 0 mg PO ASDIRECTED WILLIAM; Protocol Last Admin: 06/07/19 21:38 Dose: 1 mg Admin: 06/07/19 18:38 Dose: 1 mg Lorazepam (Ativan) 0 mg IV ASDIRECTED WILLIAM; Protocol Magnesium Hydroxide (Milk Of Magnesia) 30 ml PO Q12H PRN PRN Reason: Constipation Melatonin (Melatonin) 9 mg PO BEDTIME WILLIAM Last Admin: 06/07/19 21:39 Dose: 9 mg Morphine Sulfate (Morphine) 15 mg PO Q4H PRN PRN Reason: Pain (moderate 4-6) Nicotine (Habitrol) 21 mg TRDERM DAILY PRN PRN Reason: nicotine craving Last Admin: 06/07/19 18:05 Dose: 21 mg Pantoprazole Sodium (Protonix) 40 mg PO ACBREAKFAST [facility] Prednisolone (Orapred 15 Mg/5ml Soln) 40 mg PO DAILY [facility] Last Admin: 06/07/19 17:48 Dose: 40 mg Senna/Docusate Sodium (Senna Plus) 1 tab PO BID PRN PRN Reason: Constipation Thiamine HCl (Vitamin B-1) 100 mg PO DAILY [facility] Labs: Laboratory Tests 06/07/19 06/07/19 06/07/19 Range/Units 13:11 13:30 13:30 WBC (4.5-11.0) K/uL RBC (4.30-5.90) M/uL Hgb (12.0-15.0) g/dL Hct (40.0-54.0) % MCV (80-98) fL MCH (27-31) pg MCHC (32-36) % Plt Count (150-400) K/uL Neut % (Auto) (36-66) % Lymph % (Auto) (24-44) % Union % (Auto) (2-6) % Eos % (Auto) (2-4) % Baso % (Auto) (0-1) % PT (9.5-12.0) sec INR (0.80-1.20) Sodium (140-148) mmol/L Potassium (3.6-5.2) mmol/L Chloride (100-108) mmol/L Carbon Dioxide (21-32) mmol/L Anion Gap (5.0-14.0) mmol/L BUN (7-18) mg/dL Creatinine (0.8-1.3) mg/dL Est Cr Clr Drug Dosing mL/min Estimated GFR (MDRD) (>60) Glucose (74-106) mg/dL Lactic Acid 3.5 H (0.4-2.0) mmol/L Calcium (8.5-10.1) mg/dL Magnesium (1.8-2.4) mg/dL Total Bilirubin (0.2-1.0) mg/dL AST (15-37) U/L ALT (12-78) U/L Alkaline Phosphatase (46-116) U/L Lactate Dehydrogenase (85-227) U/L C-Reactive Protein (0.0-0.3) mg/dL Total Protein (6.4-8.2) g/dL Albumin (3.4-5.0) g/dL Globulin (2.3-3.5) g/dL Albumin/Globulin Ratio (1.2-2.2) Lipase (73-393) U/L Urine Color Brown A (YELLOW) Urine Appearance Cloudy A (CLEAR) Urine pH 6.5 (5.0-8.0) Ur Specific Amado 1.010 (1.008-1.030) Urine Protein 30 H (NEGATIVE) mg/dL Urine Glucose (UA) 100 H (NEGATIVE) mg/dL Urine Ketones Negative (NEGATIVE) mg/dL Urine Occult Blood Trace (NEGATIVE) Urine Nitrite Negative (NEGATIVE) Urine Bilirubin Large (NEGATIVE) Urine Urobilinogen >=8.0 H (0.2-1.0) EU/dL Ur Leukocyte Esterase Negative (NEGATIVE) Urine RBC 0-5 (0-5) Urine WBC 0-5 (0-5) Ur Epithelial Cells Few Amorphous Sediment Not seen Urine Bacteria Few Urine Mucus Not seen Ethyl Alcohol < 3 mg/dL 06/07/19 06/07/19 06/07/19 Range/Units 13:30 13:30 13:37 WBC 12.9 H (4.5-11.0) K/uL RBC 3.08 L (4.30-5.90) M/uL Hgb 11.7 L D (12.0-15.0) g/dL Hct 32.5 L (40.0-54.0) % MCV 106 H (80-98) fL MCH 38 H (27-31) pg MCHC 36 (32-36) % Plt Count 339 (150-400) K/uL Neut % (Auto) 83 H (36-66) % Lymph % (Auto) 8 L (24-44) % Union % (Auto) 8 H (2-6) % Eos % (Auto) 0 L (2-4) % Baso % (Auto) 0 (0-1) % PT (9.5-12.0) sec INR (0.80-1.20) Sodium (140-148) mmol/L Potassium (3.6-5.2) mmol/L Chloride (100-108) mmol/L Carbon Dioxide (21-32) mmol/L Anion Gap (5.0-14.0) mmol/L BUN (7-18) mg/dL Creatinine (0.8-1.3) mg/dL Est Cr Clr Drug Dosing mL/min Estimated GFR (MDRD) (>60) Glucose (74-106) mg/dL Lactic Acid (0.4-2.0) mmol/L Calcium (8.5-10.1) mg/dL Magnesium (1.8-2.4) mg/dL Total Bilirubin (0.2-1.0) mg/dL AST (15-37) U/L ALT (12-78) U/L Alkaline Phosphatase (46-116) U/L Lactate Dehydrogenase 76 L (85-227) U/L C-Reactive Protein 5.90 H (0.0-0.3) mg/dL Total Protein (6.4-8.2) g/dL Albumin (3.4-5.0) g/dL Globulin (2.3-3.5) g/dL Albumin/Globulin Ratio (1.2-2.2) Lipase 78 (73-393) U/L Urine Color (YELLOW) Urine Appearance (CLEAR) Urine pH (5.0-8.0) Ur Specific Amado (1.008-1.030) Urine Protein (NEGATIVE) mg/dL Urine Glucose (UA) (NEGATIVE) mg/dL Urine Ketones (NEGATIVE) mg/dL Urine Occult Blood (NEGATIVE) Urine Nitrite (NEGATIVE) Urine Bilirubin (NEGATIVE) Urine Urobilinogen (0.2-1.0) EU/dL Ur Leukocyte Esterase (NEGATIVE) Urine RBC (0-5) Urine WBC (0-5) Ur Epithelial Cells Amorphous Sediment Urine Bacteria Urine Mucus Ethyl Alcohol mg/dL 06/07/19 06/07/19 06/07/19 Range/Units 13:37 13:37 14:55 WBC (4.5-11.0) K/uL RBC (4.30-5.90) M/uL Hgb (12.0-15.0) g/dL Hct (40.0-54.0) % MCV (80-98) fL MCH (27-31) pg MCHC (32-36) % Plt Count (150-400) K/uL Neut % (Auto) (36-66) % Lymph % (Auto) (24-44) % Union % (Auto) (2-6) % Eos % (Auto) (2-4) % Baso % (Auto) (0-1) % PT 13.2 H (9.5-12.0) sec INR 1.24 H (0.80-1.20) Sodium 134 L (140-148) mmol/L Potassium 3.3 L (3.6-5.2) mmol/L Chloride 92 L (100-108) mmol/L Carbon Dioxide 30 (21-32) mmol/L Anion Gap 15.3 H (5.0-14.0) mmol/L BUN 7 D (7-18) mg/dL Creatinine 0.9 (0.8-1.3) mg/dL Est Cr Clr Drug Dosing 148.66 mL/min Estimated GFR (MDRD) > 60 (>60) Glucose 113 H (74-106) mg/dL Lactic Acid (0.4-2.0) mmol/L Calcium 9.5 (8.5-10.1) mg/dL Magnesium 1.6 L (1.8-2.4) mg/dL Total Bilirubin 17.9 H D (0.2-1.0) mg/dL AST 145 H (15-37) U/L ALT 62 (12-78) U/L Alkaline Phosphatase 116 (46-116) U/L Lactate Dehydrogenase (85-227) U/L C-Reactive Protein (0.0-0.3) mg/dL Total Protein 7.6 (6.4-8.2) g/dL Albumin 3.2 L (3.4-5.0) g/dL Globulin 4.4 H (2.3-3.5) g/dL Albumin/Globulin Ratio 0.7 L (1.2-2.2) Lipase (73-393) U/L Urine Color (YELLOW) Urine Appearance (CLEAR) Urine pH (5.0-8.0) Ur Specific Amado (1.008-1.030) Urine Protein (NEGATIVE) mg/dL Urine Glucose (UA) (NEGATIVE) mg/dL Urine Ketones (NEGATIVE) mg/dL Urine Occult Blood (NEGATIVE) Urine Nitrite (NEGATIVE) Urine Bilirubin (NEGATIVE) Urine Urobilinogen (0.2-1.0) EU/dL Ur Leukocyte Esterase (NEGATIVE) Urine RBC (0-5) Urine WBC (0-5) Ur Epithelial Cells Amorphous Sediment Urine Bacteria Urine Mucus Ethyl Alcohol mg/dL Meds: Medications Generic Name Dose Route Start Last Admin Trade Name Freq PRN Reason Stop Dose Admin Apixaban 5 mg 06/07/19 21:00 06/07/19 21:39 Eliquis PO 5 mg BID WILLIAM Administration Folic Acid 1 mg 06/08/19 09:00 Folic Acid PO DAILY WILLIAM Gabapentin 400 mg 06/07/19 21:00 06/07/19 21:38 Neurontin PO 06/12/19 14:01 400 mg TID WILLIAM Administration Magnesium Sulfate 2 gm/ Premix 50 mls @ 12.5 mls/hr 06/07/19 21:00 06/07/19 21:40 IV 06/08/19 12:59 12.5 mls/hr Q6H WILLIAM Administration Potassium Chloride/Sodium Chloride 1,000 mls @ 125 mls/hr 06/07/19 20:30 22:16 Normal Saline With 20 Meq Kcl IV 125 mls/hr ASDIRECTED WILLIAM Administration Ibuprofen 600 mg 06/07/19 16:26 Motrin PO Q6H PRN Pain/Fever Lorazepam 0.5 mg 06/07/19 16:26 Ativan IVPUSH Q4H PRN Nausea/Vomiting Lorazepam 0 mg 06/07/19 16:26 06/07/19 21:38 Ativan PO 1 mg ASDIRECTED WILLIAM Administration Protocol Lorazepam 0 mg 06/07/19 16:26 Ativan IV ASDIRECTED WILLIAM Protocol Magnesium Hydroxide 30 ml 06/07/19 16:26 Milk Of Magnesia PO Q12H PRN Constipation Melatonin 9 mg 06/07/19 21:00 06/07/19 21:39 Melatonin PO 9 mg BEDTIME WILLIAM Administration Morphine Sulfate 15 mg 06/07/19 16:26 Morphine PO Q4H PRN Pain (moderate 4-6) Nicotine 21 mg 06/07/19 17:00 06/07/19 18:05 Habitrol TRDERM 21 mg DAILY PRN Administration nicotine craving Pantoprazole Sodium 40 mg 06/08/19 07:30 Protonix PO ACBREAKFAST WILLIAM Prednisolone 40 mg 06/07/19 16:26 06/07/19 17:48 Orapred 15 Mg/5ml Soln PO 40 mg DAILY WILLIAM Administration Senna/Docusate Sodium 1 tab 06/07/19 16:26 Senna Plus PO BID PRN Constipation Thiamine HCl 100 mg 06/08/19 09:00 Vitamin B-1 PO DAILY [facility] Discontinued Medications Generic Name Dose Route Start Last Admin Trade Name Freq PRN Reason Stop Dose Admin Lactated Ringer's 1,000 mls @ 500 mls/hr 06/07/19 13:15 06/07/19 13:43 Ringers, Lactated IV 500 mls/hr .BOLUS WILLIAM Administration Sodium Chloride 80 mls @ 3.5 mls/sec 06/07/19 14:11 06/07/19 14:29 Normal Saline IV 06/07/19 14:12 3 mls/sec ONETIME ONE Administration Multivitamins/Minerals 10 ml/ 1,013 mls @ 500 mls/hr 06/07/19 14:48 Thiamine HCl 200 mg/ Chromium/ IV 06/07/19 16:49 Copper/Manganese/Seleni/Zn 1 ONETIME ONE ml/ Lactated Ringer's Multivitamins/Minerals 10 ml/ 1,017.2 mls @ 250 mls/hr 06/07/19 16:26 18:02 Thiamine HCl 100 mg/ Folic IV 06/07/19 20:31 250 mls/hr Acid 1 mg/ Magnesium Sulfate 3 ASDIRECTED WILLIAM Administration gm/ Sodium Chloride Phytonadione 5 mg/ Sodium 50.5 mls @ 100 mls/hr 06/07/19 16:26 06/07/19 17:25 Chloride IV 06/07/19 16:56 100 mls/hr NOW ONE Administration Potassium Chloride 20 meq/ 112 mls @ 50 mls/hr 06/07/19 17:00 06/07/19 20:37 Lidocaine HCl 2 ml/ Sodium IV 06/07/19 20:59 50 mls/hr Chloride Q2H WILLIAM Administration Sodium Chloride Confirm 06/07/19 17:17 06/07/19 17:41 Normal Saline Administered 06/07/19 17:18 Not Given Dose 50 mls @ as directed .ROUTE .STK-MED ONE Potassium Chloride Confirm 06/07/19 18:20 06/07/19 19:17 Kcl 20 Meq In Water 100 Ml Administered 06/07/19 18:21 Not Given Dose 100 mls @ as directed .ROUTE .STK-MED ONE Potassium Chloride Confirm 06/07/19 20:35 06/07/19 20:39 Kcl 20 Meq In Water 100 Ml Administered 06/07/19 20:36 Not Given Dose 100 mls @ as directed .ROUTE .STK-MED ONE Iopamidol 150 ml 06/07/19 14:11 06/07/19 14:28 Isovue-300 (61%) IV 06/07/19 14:12 150 ml ONETIME ONE Administration Lidocaine HCl Confirm 06/07/19 18:20 06/07/19 19:17 Xylocaine-Mpf 1% Administered 06/07/19 18:21 Not Given Dose 5 ml .ROUTE .STK-MED ONE Lorazepam 2 mg 06/07/19 13:20 06/07/19 13:46 Ativan IVPUSH 06/07/19 13:21 2 mg ONETIME ONE Administration Lorazepam 2 mg 06/07/19 16:05 06/07/19 16:10 Ativan IVPUSH 06/07/19 16:06 2 mg ONETIME ONE Administration Magnesium Oxide 400 mg 06/07/19 13:11 06/07/19 13:48 Magnesium Oxide PO 06/07/19 13:12 400 mg ONETIME ONE Administration Metoclopramide HCl 5 mg 06/07/19 13:17 06/07/19 13:44 Reglan IVPUSH 06/07/19 13:18 5 mg ONETIME ONE Administration Nicotine 21 mg 06/07/19 16:26 Habitrol TRDERM DAILY PRN nicotine craving Pantoprazole Sodium 80 mg 06/07/19 13:30 06/07/19 14:06 Protonix Iv IVPUSH 06/07/19 14:30 80 mg .BOLUS WILLIAM Administration Phytonadione Confirm 06/07/19 17:16 06/07/19 17:41 Aquamephyton Administered 06/07/19 17:17 Not Given Dose 10 mg .ROUTE .STK-MED ONE Prednisolone Confirm 06/07/19 17:33 06/07/19 17:43 Orapred 15 Mg/5ml Soln Administered 06/07/19 17:34 Not Given Dose 15 mg .ROUTE .STK-MED ONE Sodium Chloride 10 ml 06/07/19 14:11 06/07/19 14:29 Saline Flush FLUSH 06/07/19 14:12 10 ml ONETIME ONE Administration Sucralfate 1 gm 06/07/19 13:18 06/07/19 13:55 Carafate PO 06/07/19 13:19 1 gm ONETIME ONE Administration Thiamine HCl 100 mg 06/07/19 13:11 06/07/19 13:48 Vitamin B-1 PO 06/07/19 13:12 100 mg ONETIME ONE Administration - Radiology Interpretation Free Text/Narrative:: US RUQ: Enlarged boggy Liver, No common bile duct dilation or stone noted. CT Abd/Pelvis with IV contrast: Liver changes consistent with history. Radiology report reviewed. - Re-Assessments/Exams Free Text/Narrative Re-Assessment/Exam: Contacted Hospitalist regarding Admission for acute hyperbilirubinemia, abdominal pain, vomiting and possible alcohol withdrawal symptoms. 1 liter LR and Second liter LR with Thiamine and minerals given. Patient was given Reglan for nausea to prevent vomiting. Patient has prolonged Qtc noted on EKG. Patient had not episode of vomiting during ER visit. Wet Read on ABD US per Tech: No acute gallstones but boggy liver noted. CT Abd /Pelvis with IV contrast pending. Patient's symptom are improved at time of hospitalist presentation and evaluation. Patient is planned admission to ICU for electrolyte and fluid management. 06/07/19 15:00 Departure - Departure Time of Disposition: 15:30 Disposition: Admitted As Inpatient 68 Clinical Impression: Jaundice due to hepatitis, Hypokalemia, Abdominal pain, Vomiting Alcoholic hepatitis Qualifiers: Ascites presence: without ascites Qualified Code(s): K70.10 - Alcoholic hepatitis without ascites - Discharge Information - My Orders Last 24 Hours: My Active Orders 06/07/19 13:11 Cardiac Monitoring [RC] .As Directed 06/07/19 13:12 Vital Signs [RC] Q1H Blood Culture x2 Reflex Set [OM.PC] Urgent 06/07/19 13:17 EKG 12 Lead [EK] Urgent 06/07/19 13:30 CULTURE BLOOD [BC] Urgent 06/07/19 13:37 CULTURE BLOOD [BC] Urgent - Assessment/Plan Last 24 Hours: My Active Orders 06/07/19 13:11 Cardiac Monitoring [RC] .As Directed 06/07/19 13:12 Vital Signs [RC] Q1H Blood Culture x2 Reflex Set [OM.PC] Urgent 06/07/19 13:17 EKG 12 Lead [EK] Urgent 06/07/19 13:30 CULTURE BLOOD [BC] Urgent 06/07/19 13:37 CULTURE BLOOD [BC] Urgent
[2019-06-07] MEDS ORDERED: Pantoprazole 40 MG Vial IVPUSH SCH (13:30)
[2019-06-07] MEDS ORDERED: Iopamidol 500 ML BOTTLE IV ONE (14:11)
[2019-06-07] MEDS ORDERED: Sodium Chloride 0.9% 10 ML Syringe FLUSH ONE (14:11)
[2019-06-07] MEDS ORDERED: Sodium Chloride 0.9% 80 ML IV ONE (14:11)
[2019-06-07] MEDS ORDERED: MVI, Adult with Vitamin K 10 ML, Thiamine 200 MG, Chromium/Copper/Mang/Selen/Zn 1 ML in... IV ONE ×4 (14:48)
--- NOTE | 2019-06-07 15:39 | CRLCR ---
HISTORY: Vomiting blood. FINDINGS: PA and lateral views of the chest are provided. The lungs are clear and there is no evidence for pleural effusion or pneumothorax. Cardiac silhouette size is within normal limits. Dictated by Prem Stratton MD @ Jun 07 2019 3:37PM Signed by Dr. Prem Stratton @ Jun 07 2019 3:37PM
--- NOTE | 2019-06-07 15:43 | CRLCT ---
INDICATION: abdominal pain, alcohol pancreatitis vs acute [id number] mL isovue 300 [id number] images Indication: Abdominal pain. Alcoholic pancreatitis versus acute pancreatitis. Technique: CT of the abdomen and pelvis. 150 cc of Isovue-300 IV. Coronal/sagittal reconstruction images. Comparison: None. Findings: Lung bases: There is no pleural or pericardial effusion. The heart size is normal. No acute airspace disease. Mild dependent atelectasis. No basilar pneumothorax. Abdomen/pelvis: Cirrhotic liver morphology, with hepatomegaly, and diffuse hepatic steatosis. The liver measures up to 30.1 cm in maximum length. Nodular surface, particularly overlying segments II/Jeremy. No solid hepatic mass on single phase CT. No adrenal mass. No hydronephrosis. No perinephric fluid collection. Splenomegaly. No pancreatic mass, pancreatic duct dilation, glandular atrophy. There is a paucity of fat stranding in the anterior perirenal space. There is no portal vein thrombosis. The splenic vein and SMV are patent. No pseudoaneurysm is identified on single phase CT. Large retroperitoneal lymph nodes. Similar findings are seen in the small bowel mesentery. No abdominal or pelvic lymphadenopathy by size criteria. No pneumatosis, portal venous gas, or small-bowel obstruction. No evidence for appendicitis. Recanalization of the paraumbilical vein, which is consistent with portal hypertension. The bone windows demonstrate no lytic or blastic bone lesions. The alignment is preserved. On sagittal reconstruction images, there is an age-indeterminate deformity at T11, with less than 25 percent vertebral body height loss. Suggest correlation with physical exam findings to determine acuity. There is no fat stranding present in the perivertebral soft tissues. Impression: 1. No evidence on CT for pancreatic necrosis. Given the history, the findings likely indicate acute interstitial edematous pancreatitis. 2. There is no pancreatic mass, pancreatic duct dilation, glandular atrophy, or infiltration of the anterior pararenal space. 3. Hepatosplenomegaly, with a cirrhotic liver morphology, and recanalization of the paraumbilical vein. 4. No abdominal or pelvic ascites. 5. Normal caliber biliary tree. No common bile duct stone. Dictated by Moustapha Julian MD @ 06/07/2019 3:41:28 PM Please note that all CT scans at this facility use dose modulation, iterative reconstruction, and/or weight-based dosing when appropriate to reduce radiation dose to as low as reasonably achievable. Dictated by: Moustapha Julian MD @ 06/07/2019 15:41:49 (Electronically Signed)
--- NOTE | 2019-06-07 15:55 | CRLUS ---
INDICATION: Abdominal pain and jaundice. Alcohol use. TECHNIQUE: Ultrasound abdomen limited. Sonographic images of the right upper quadrant were obtained using epps-scale and color Doppler images. COMPARISON: CT abdomen pelvis June 07, 2019. FINDINGS: Liver: Enlarged measuring 22 cm in greatest dimension. Coarse echotexture. No focal mass.. No masses. No intrahepatic biliary dilatation. Gallbladder: No stones or sludge. Gallbladder wall is borderline thickened at 3 mm. No pericholecystic fluid. Common bile duct: 6 mm. Pancreas: Not well visualized secondary to bowel gas. Right kidney: Normal in size. Normal echotexture and cortex. No suspicious masses, stones, or hydronephrosis. Vasculature: Proximal abdominal aorta and IVC are normal. IMPRESSION: Hepatomegaly is present. No biliary dilatation. No other acute or significant finding. Dictated by Nick Hoyt MD @ 06/07/2019 3:55:01 PM Dictated by: Nick Hoyt MD @ 06/07/2019 15:55:10 (Electronically Signed)
--- NOTE | 2019-06-07 16:10 | PCM.HP.2 ---
H&P History of Present Illness - General Date of Service: 06/07/19 Admit Problem/Dx: Admission Diagnosis/Problem Admission Diagnosis/Problem Alcoholic hepatitis without ascites Source of Information: Patient, Provider History Limitations: Reports: No Limitations - History of Present Illness Initial Comments - Free Text/Narative: CC: My eyes are yellow HPI: Shahbaz presented to the emergency room today with concerns about yellow changes of his skin and eyes. He first noticed these about 5 or 6 days ago. Also starting at that time were abdominal pain, nausea, vomiting and fatigue. Abdominal pain is described as mild achy pain in the right upper abdomen as well as near his belly button on the right side. The pain does not radiate. It is worse with movements and in particular laying on the right side. Pain does improve when he lays on his left side. He hasn't taken anything to make the pain better. Pain has been stable. Over the past 2 days he has had emesis anytime he tries to drink anything including water. He has not had any solid food for about 5 days. Up until yesterday he was able to continued drinking alcohol. He feels very fatigued. He has some numbness and tingling in his feet. He has not had any fevers or chills. No complaints of shortness of breath but he does have a cough for several days. No sick contacts or recent travel. He does admit to drinking at least 1 L of vodka per day and has done so for some time with the exception of one month earlier in the summer where he had quit drinking. Workup in the emergency room was suggestive of alcoholic hepatitis with a bilirubin greater than 17 and a discriminant function greater than 32. He has a mild elevation of his INR as well as hypokalemia and hypomagnesemia. Imaging suggested hepatosplenomegaly with cirrhosis. He will be admitted for management of acute alcoholic hepatitis. Abdominal Pain Score (Numeric/FACES): 6 - Related Data Allergies/Adverse Reactions: Allergies Allergy/AdvReac Type Severity Reaction Status Date / Time No Known Allergies Allergy Verified 06/07/19 13:00 Home Medications: Home Meds Rivaroxaban [Xarelto] 20 mg PO DAILY 07/26/18 [History] Past Medical History Cardiovascular History: Reports: Blood Clots/VTE/DVT Respiratory History: Reports: Asthma Neurological History: Reports: Concussion, Migraines Psychiatric History: Reports: Addiction, Anxiety, Depression Hematologic History: Reports: Anticoagulation Therapy - Infectious Disease History Infectious Disease History: Reports: Chicken Pox - Past Surgical History Musculoskeletal Surgical History: Reports: Other (See Below) Other Musculoskeletal Surgeries/Procedures:: Left ACL reconstruction Social & Family History - Family History Cardiac: Reports: Arrhythmia Other Cardiac Family History: Ablation Respiratory: Reports: Asthma Psychiatric: Reports: Anxiety - Tobacco Use Smoking Status *Q: Current Every Day Smoker Years of Tobacco use: 9 Packs/Tins Daily: 1 - Caffeine Use Caffeine Use: Reports: Soda - Alcohol Use Days Per Week of Alcohol Use: 7 Number of Drinks Per Day: 20 Total Drinks Per Week: 140 Date of Last Drink: 06/06/19 Time of Last Drink: 16:00 - Recreational Drug Use Recreational Drug Use: Yes Recreational Drug Type: Reports: Marijuana/Hashish Recreational Drug Use Frequency: Socially H&P Review of Systems - Review of Systems: Review Of Systems: See Below Free Text/Narrative: A complete 12 point review of systems was obtained. Pertinent positives and negatives are noted in the history of present illness. All other systems were reviewed and were negative except as noted. Exam - Exam Exam: See Below - Vital Signs Vital Signs: Last Vital Signs Temp 36.3 C 06/07/19 12:58 Pulse 109 H 06/07/19 14:41 Resp 18 06/07/19 14:41 BP 137/69 06/07/19 14:41 Pulse Ox 98 06/07/19 14:41 Weight: 153.6 kg - Exam Quality Assessment: No: Supplemental Oxygen General: Alert, Oriented, Cooperative. No: Mild Distress HEENT: Conjunctiva Clear, Pupils Equal, Scleral Icterus. No: Mucosa Moist & [address] (dry) Neck: Supple, Trachea Midline. No: Lymphadenopathy Lungs: Clear to Auscultation, Normal Respiratory Effort. No: Wheezing Cardiovascular: Regular Rhythm, Tachycardia. No: Systolic Murmur GI/Abdominal Exam: Normal Bowel Sounds, Soft, Distended, Tender Back Exam: Normal Inspection, Full Range of Motion Extremities: No Pedal Edema. No: Increased Warmth Peripheral Pulses: 2+: Dorsalis Pedis (L), Dorsalis Pedis (R) Skin: Warm, Dry, Other (jaundice ) Neuro Extensive - Mental Status: Alert, Oriented x3, Nl Response to Commands Neuro Extensive - Motor, Sensory, Reflexes: No: Dysarthria, Abnormal Motor, Tremor Psychiatric: Alert, Normal Affect - Patient Data Lab Results Last 24 hrs: Laboratory Results - last 24 hr 06/07/19 06/07/19 06/07/19 Range/Units 13:30 13:30 13:30 WBC (4.5-11.0) K/uL RBC (4.30-5.90) M/uL Hgb (12.0-15.0) g/dL Hct (40.0-54.0) % MCV (80-98) fL MCH (27-31) pg MCHC (32-36) % Plt Count (150-400) K/uL Neut % (Auto) (36-66) % Lymph % (Auto) (24-44) % [place] % (Auto) (2-6) % Eos % (Auto) (2-4) % Baso % (Auto) (0-1) % PT (9.5-12.0) sec INR (0.80-1.20) Sodium (140-148) mmol/L Potassium (3.6-5.2) mmol/L Chloride (100-108) mmol/L Carbon Dioxide (21-32) mmol/L Anion Gap (5.0-14.0) mmol/L BUN (7-18) mg/dL Creatinine (0.8-1.3) mg/dL Est Cr Clr Drug Dosing mL/min Estimated GFR (MDRD) (>60) Glucose (74-106) mg/dL Lactic Acid 3.5 H (0.4-2.0) mmol/L Calcium (8.5-10.1) mg/dL Magnesium (1.8-2.4) mg/dL Total Bilirubin (0.2-1.0) mg/dL AST (15-37) U/L ALT (12-78) U/L Alkaline Phosphatase (46-116) U/L Lactate Dehydrogenase (85-227) U/L C-Reactive Protein 5.90 H (0.0-0.3) mg/dL Total Protein (6.4-8.2) g/dL Albumin (3.4-5.0) g/dL Globulin (2.3-3.5) g/dL Albumin/Globulin Ratio (1.2-2.2) Lipase (73-393) U/L Ethyl Alcohol < 3 mg/dL 06/07/19 06/07/19 06/07/19 Range/Units 13:30 13:37 13:37 WBC 12.9 H (4.5-11.0) K/uL RBC 3.08 L (4.30-5.90) M/uL Hgb 11.7 L D (12.0-15.0) g/dL Hct 32.5 L (40.0-54.0) % MCV 106 H (80-98) fL MCH 38 H (27-31) pg MCHC 36 (32-36) % Plt Count 339 (150-400) K/uL Neut % (Auto) 83 H (36-66) % Lymph % (Auto) 8 L (24-44) % [place] % (Auto) 8 H (2-6) % Eos % (Auto) 0 L (2-4) % Baso % (Auto) 0 (0-1) % PT (9.5-12.0) sec INR (0.80-1.20) Sodium 134 L (140-148) mmol/L Potassium 3.3 L (3.6-5.2) mmol/L Chloride 92 L (100-108) mmol/L Carbon Dioxide 30 (21-32) mmol/L Anion Gap 15.3 H (5.0-14.0) mmol/L BUN 7 D (7-18) mg/dL Creatinine 0.9 (0.8-1.3) mg/dL Est Cr Clr Drug Dosing 148.66 mL/min Estimated GFR (MDRD) > 60 (>60) Glucose 113 H (74-106) mg/dL Lactic Acid (0.4-2.0) mmol/L Calcium 9.5 (8.5-10.1) mg/dL Magnesium (1.8-2.4) mg/dL Total Bilirubin 17.9 H D (0.2-1.0) mg/dL AST 145 H (15-37) U/L ALT 62 (12-78) U/L Alkaline Phosphatase 116 (46-116) U/L Lactate Dehydrogenase 76 L (85-227) U/L C-Reactive Protein (0.0-0.3) mg/dL Total Protein 7.6 (6.4-8.2) g/dL Albumin 3.2 L (3.4-5.0) g/dL Globulin 4.4 H (2.3-3.5) g/dL Albumin/Globulin Ratio 0.7 L (1.2-2.2) Lipase 78 (73-393) U/L Ethyl Alcohol mg/dL 06/07/19 06/07/19 Range/Units 13:37 14:55 WBC (4.5-11.0) K/uL RBC (4.30-5.90) M/uL Hgb (12.0-15.0) g/dL Hct (40.0-54.0) % MCV (80-98) fL MCH (27-31) pg MCHC (32-36) % Plt Count (150-400) K/uL Neut % (Auto) (36-66) % Lymph % (Auto) (24-44) % [place] % (Auto) (2-6) % Eos % (Auto) (2-4) % Baso % (Auto) (0-1) % PT 13.2 H (9.5-12.0) sec INR 1.24 H (0.80-1.20) Sodium (140-148) mmol/L Potassium (3.6-5.2) mmol/L Chloride (100-108) mmol/L Carbon Dioxide (21-32) mmol/L Anion Gap (5.0-14.0) mmol/L BUN (7-18) mg/dL Creatinine (0.8-1.3) mg/dL Est Cr Clr Drug Dosing mL/min Estimated GFR (MDRD) (>60) Glucose (74-106) mg/dL Lactic Acid (0.4-2.0) mmol/L Calcium (8.5-10.1) mg/dL Magnesium 1.6 L (1.8-2.4) mg/dL Total Bilirubin (0.2-1.0) mg/dL AST (15-37) U/L ALT (12-78) U/L Alkaline Phosphatase (46-116) U/L Lactate Dehydrogenase (85-227) U/L C-Reactive Protein (0.0-0.3) mg/dL Total Protein (6.4-8.2) g/dL Albumin (3.4-5.0) g/dL Globulin (2.3-3.5) g/dL Albumin/Globulin Ratio (1.2-2.2) Lipase (73-393) U/L Ethyl Alcohol mg/dL Result Diagrams: 06/07/19 13:37 06/07/19 13:37 Imaging Impressions Last 24 hrs: Chest x-ray - image personally reviewed - lungs are clear with no mass, infiltrate or effusion. Heart size is normal. CT scan of the abdomen and pelvis - images personally reviewed - hepatosplenomegaly is present. There is no ascites. Liver appears cirrhotic. Kidneys are normal. No obvious intestinal abnormalities. Ultrasound of the right upper quadrant - images personally reviewed - gallbladder is slightly contracted. Liver is enlarged and cirrhotic appearing. No obvious masses. Common bile duct appears normal in size. No obvious stones. EKG INTERPRETATION EKG Date: 06/07/19 Rhythm: Other (Sinus tachycardia) Rate (Beats/Min): 104 [place]: Normal P-Wave: Present QRS: Normal ST-T: Normal QT: Prolonged Comparison: NA - No Prior EKG *Q Meaningful Use (ADM) - VTE Risk Assess *Q Each Risk Factor Represents 1 Point: Obesity ( BMI > 25 kg/m2) Total Score 1 Point Risk Factors: 1 Each Risk Factor Represents 2 Points: None Total Score 2 Point Risk Factors: 0 Each Risk Factor Represents 3 Points: History of DVT/PE Total Score 3 Point Risk Factors: 3 Each Risk Factor Represents 5 Points: None Total Score 5 Point Risk Factors: 0 Venous Thromboembolism Risk Factor Score *Q: 4 - Problem List (1) Alcoholic hepatitis SNOMED Code(s): 736588290 ICD Code: K70.10 - ALCOHOLIC HEPATITIS WITHOUT ASCITES Status: Acute Current Visit: Yes Qualifiers: Ascites presence: without ascites Qualified Code(s): K70.10 - Alcoholic hepatitis without ascites (2) Hypokalemia SNOMED Code(s): 87520750 ICD Code: E87.6 - HYPOKALEMIA Status: Acute Current Visit: Yes (3) Leg DVT (deep venous thromboembolism), chronic SNOMED Code(s): 610874898, 209935133, 697386194910894 ICD Code: I82.509 - CHRONIC EMBOLISM AND THOMBOS UNSP DEEP VN UNSP LOW EXTRM Status: Chronic Current Visit: No Qualifiers: Laterality: left Qualified Code(s): I82.502 - Chronic embolism and thrombosis of unspecified deep veins of left lower extremity Problem List Initiated/Reviewed/Updated: Yes Orders Last 24hrs: Active Orders 24 hr Category Date Time Status Patient Status Manage Transfer [TRANSFER] Routine ADT 06/07/19 15:55 Ordered Cardiac Monitoring [RC] .As Directed Care 06/07/19 13:11 Active EKG Documentation Completion [RC] ASDIRECTED Care 06/07/19 13:17 Active Vital Signs [RC] Q1H Care 06/07/19 13:12 Active Vital Signs [RC] Q30M Care 06/07/19 13:11 Active CULTURE BLOOD [BC] Urgent Lab 06/07/19 13:30 Received CULTURE BLOOD [BC] Urgent Lab 06/07/19 13:37 Received UA W/MICROSCOPIC [URIN] Urgent Lab 06/07/19 13:11 Ordered Lactated Ringers [Ringers, Lactated] 1,000 ml Med 06/07/19 13:15 Active IV .BOLUS MVI, Adult with Vitamin K [Infuvite Adult] 10 ml Med 06/07/19 14:48 Active Thiamine [Vitamin B-1] 200 mg Chromium/Copper/Jai/Selen/Zn [Multitrace-5 Concentrate ] 1 ml Lactated Ringers [Ringers, Lactated] 1,000 ml IV ONETIME Blood Culture x2 Reflex Set [OM.PC] Urgent Oth 06/07/19 13:12 Ordered Resuscitation Status Routine Resus Stat 06/07/19 15:56 Ordered EKG 12 Lead [EK] Urgent Ther 06/07/19 13:17 Ordered Medication Orders Lactated Ringer's (Ringers, Lactated) 1,000 mls @ 500 mls/hr IV .BOLUS WILLIAM Last Admin: 06/07/19 13:43 Dose: 500 mls/hr Multivitamins/Minerals 10 ml/Thiamine HCl 200 mg/ Chromium/Copper/Manganese/ Seleni/Zn 1 ml/ Lactated Ringer's 1,013 mls @ 500 mls/hr IV ONETIME ONE Stop: 06/07/19 16:49 Assessment/Plan Comment:: ASSESSMENT AND PLAN - Alcoholic hepatitis without ascites - acute onset over the past few days with jaundice, abdominal pain, nausea and vomiting. Bilirubin significantly elevated at more than 17. INR mildly elevated. Discriminant function greater than 32 suggesting steroids may help benefit survival. He is dehydrated and has electrolyte abnormalities. Kidney function stable at this time. No evidence for hepatic encephalopathy. -Prednisolone 40 mg daily -IV vitamin K 1 -IV fluids -Repeat labs in the morning Alcohol abuse - long-standing history of heavy alcohol use in very large quantities. No complicated by alcoholic hepatitis. He is interested in cessation at this time. Patient reports that alcohol is consumed to help coverup underlying anxiety and depression. Previous episodes of withdrawal involved anxiety, diaphoresis but no history of severe withdrawal or seizures. -Encourage cessation -CIWAA protocol with lorazepam if indicated -Gabapentin -Further discussions about inpatient versus outpatient treatment after the hospital stay Hypokalemia - mild but will need replacement and I would expect that he will need a fairly large quantity of potassium over the next few days. -40 mEq of potassium now Tobacco dependence - patient smokes one pack per day. Planning to tackle the alcohol issue now and tobacco down the road. -Nicotine patch as needed History of DVT - patient chronically anticoagulated with Xarelto. This medication is contraindicated with liver dysfunction. -Eliquis Maintenance issues - - DVT prophylaxis - Eliquis - GI prophylaxis - PPI - Nutrition - clear liquids for now, advance as tolerated - Jimenez catheter - not indicated CODE STATUS - full code Admission justification - This patient will be admitted for inpatient services and is medically appropriate meeting medical necessity for inpatient admission as outlined in my documentation. I reasonably expect the patient will require inpatient services that span a period time over 2 midnights. I reasonably expect this patient to be discharged or transferred within 96 hours [facility]. Disposition - I would anticipate discharge home after the hospital stay Primary care physician - Felecia Mccullough - Azeem Esquivel M.D. - Mortality Measure Prognosis:: Poor
[2019-06-07] MEDS ORDERED: Magnesium Hydroxide 400 MG/5 ML Susp 30 ML Cup PO PRN (16:26)
[2019-06-07] MEDS ORDERED: Phytonadione 5 MG in Sodium Chloride 0.9% 50 ML IV ONE (16:26)
[2019-06-07] MEDS ORDERED: prednisoLONE 15 MG/5 ML Soln UD Cup PO SCH (16:26)
[2019-06-07] MEDS ORDERED: MVI, Adult with Vitamin K 10 ML, Thiamine 100 MG, Folic Acid 1 MG, Magnesium Sulfate 3 ... IV SCH ×5 (16:26)
[2019-06-07] MEDS ORDERED: Nicotine 14 MG/24 Hr Patch TRDERM PRN (16:26)
[2019-06-07] MEDS ORDERED: LORazepam 2 MG/ML SDV IVPUSH PRN (16:26)
[2019-06-07] MEDS ORDERED: Sodium Chloride 0.9% 50 ML ONE (17:17)
[2019-06-07] MEDS ORDERED: prednisoLONE 15 MG/5 ML Soln UD Cup ONE (17:33)
[2019-06-07] MEDS: Nicotine 21 MG/24 Hr Patch TRDERM PRN (18:05)
[2019-06-07] MEDS ORDERED: Potassium Chloride 100 ML ONE ×2 (18:20→20:35)
[2019-06-07] MEDS: Potassium Chloride 20 MEQ, Lidocaine 1% 2 ML in Sodium Chloride 0.9% 100 ML IV SCH ×2 (18:28→20:37)
[2019-06-07] MEDS: LORazepam 1 MG Tab PO SCH ×2 (18:38→21:38)
[2019-06-07] MEDS: Gabapentin 400 MG Cap PO SCH (21:38)
[2019-06-07] MEDS: Apixaban 5 MG Tab PO SCH (21:39)
[2019-06-07] MEDS: Melatonin 3 MG Tab PO SCH (21:39)
[2019-06-07] MEDS: Magnesium Sulfate/Water 2 GM in Premix Bag 1 BAG IV SCH (21:40)
[2019-06-07] MEDS: NS + KCl 20mEq/L 1,000 ML IV SCH (22:16)
[2019-06-08] MEDS: LORazepam 1 MG Tab PO SCH ×7 (00:49→21:49)
[2019-06-08] MEDS: Magnesium Sulfate/Water 2 GM in Premix Bag 1 BAG IV SCH ×2 (02:31→08:21)
[2019-06-08] MEDS: NS + KCl 20mEq/L 1,000 ML IV SCH (06:36)
[2019-06-08] MEDS: Nicotine 21 MG/24 Hr Patch TRDERM PRN (07:59)
[2019-06-08] MEDS: prednisoLONE 15 MG/5 ML Soln UD Cup PO SCH (08:20)
[2019-06-08] MEDS: Pantoprazole 40 MG Tab.CR PO SCH (08:20)
[2019-06-08] MEDS: Apixaban 5 MG Tab PO SCH ×2 (08:20→20:49)
[2019-06-08] MEDS: Folic Acid 1 MG Tab PO SCH (08:20)
[2019-06-08] MEDS: Gabapentin 400 MG Cap PO SCH ×3 (08:20→20:49)
[2019-06-08] MEDS: Thiamine 100 MG Tab PO SCH (08:20)
--- NOTE | 2019-06-08 09:16 | PCM.PN ---
- General Info Date of Service: 06/08/19 Subjective Update: There were no acute issues overnight. Patient did accidentally pull out his IV and put a new one has been inserted. Still mildly tachycardic but otherwise vital signs have been stable. No nausea or vomiting. Tolerating clear liquids. Abdominal pain is better but not resolved. No fevers. Urine is still very dark in color. Bilirubin level has improved. No impressive evidence for alcohol withdrawal but he does have some anxiety. Functional Status: Reports: Pain Controlled, Tolerating Diet - Review of Systems General: Denies: Fever Gastrointestinal: Reports: Abdominal Pain (mild). Denies: Nausea - Patient Data Vitals - Most Recent: Last Vital Signs Temp 34.6 C L 06/08/19 08:00 Pulse 106 H 06/08/19 08:00 Resp 20 06/08/19 08:00 BP 124/83 06/08/19 08:00 Pulse Ox 95 06/08/19 08:00 Weight - Most Recent: 153.6 kg I&O - Last 24 Hours: Intake & Output 06/07/19 06/08/19 06/08/19 22:59 06:59 14:59 Intake Total 1380 2425 480 Output Total 225 Balance 1155 2425 480 Lab Results Last 24 Hours: Laboratory Results - last 24 hr 06/07/19 06/07/19 06/07/19 Range/Units 13:11 13:30 13:30 WBC (4.5-11.0) K/uL RBC (4.30-5.90) M/uL Hgb (12.0-15.0) g/dL Hct (40.0-54.0) % MCV (80-98) fL MCH (27-31) pg MCHC (32-36) % Plt Count (150-400) K/uL Neut % (Auto) (36-66) % Lymph % (Auto) (24-44) % [place] % (Auto) (2-6) % Eos % (Auto) (2-4) % Baso % (Auto) (0-1) % PT (9.5-12.0) sec INR (0.80-1.20) Sodium (140-148) mmol/L Potassium (3.6-5.2) mmol/L Chloride (100-108) mmol/L Carbon Dioxide (21-32) mmol/L Anion Gap (5.0-14.0) mmol/L BUN (7-18) mg/dL Creatinine (0.8-1.3) mg/dL Est Cr Clr Drug Dosing mL/min Estimated GFR (MDRD) (>60) Glucose (74-106) mg/dL Lactic Acid 3.5 H (0.4-2.0) mmol/L Calcium (8.5-10.1) mg/dL Magnesium (1.8-2.4) mg/dL Total Bilirubin (0.2-1.0) mg/dL AST (15-37) U/L ALT (12-78) U/L Alkaline Phosphatase (46-116) U/L Lactate Dehydrogenase (85-227) U/L C-Reactive Protein (0.0-0.3) mg/dL Total Protein (6.4-8.2) g/dL Albumin (3.4-5.0) g/dL Globulin (2.3-3.5) g/dL Albumin/Globulin Ratio (1.2-2.2) Lipase (73-393) U/L Urine Color Brown A (YELLOW) Urine Appearance Cloudy A (CLEAR) Urine pH 6.5 (5.0-8.0) Ur Specific [place] 1.010 (1.008-1.030) Urine Protein 30 H (NEGATIVE) mg/dL Urine Glucose (UA) 100 H (NEGATIVE) mg/dL Urine Ketones Negative (NEGATIVE) mg/dL Urine Occult Blood Trace (NEGATIVE) Urine Nitrite Negative (NEGATIVE) Urine Bilirubin Large (NEGATIVE) Urine Urobilinogen >=8.0 H (0.2-1.0) EU/dL Ur Leukocyte Esterase Negative (NEGATIVE) Urine RBC 0-5 (0-5) Urine WBC 0-5 (0-5) Ur Epithelial Cells Few Amorphous Sediment Not seen Urine Bacteria Few Urine Mucus Not seen Ethyl Alcohol < 3 mg/dL 06/07/19 06/07/19 06/07/19 Range/Units 13:30 13:30 13:37 WBC 12.9 H (4.5-11.0) K/uL RBC 3.08 L (4.30-5.90) M/uL Hgb 11.7 L D (12.0-15.0) g/dL Hct 32.5 L (40.0-54.0) % MCV 106 H (80-98) fL MCH 38 H (27-31) pg MCHC 36 (32-36) % Plt Count 339 (150-400) K/uL Neut % (Auto) 83 H (36-66) % Lymph % (Auto) 8 L (24-44) % [place] % (Auto) 8 H (2-6) % Eos % (Auto) 0 L (2-4) % Baso % (Auto) 0 (0-1) % PT (9.5-12.0) sec INR (0.80-1.20) Sodium (140-148) mmol/L Potassium (3.6-5.2) mmol/L Chloride (100-108) mmol/L Carbon Dioxide (21-32) mmol/L Anion Gap (5.0-14.0) mmol/L BUN (7-18) mg/dL Creatinine (0.8-1.3) mg/dL Est Cr Clr Drug Dosing mL/min Estimated GFR (MDRD) (>60) Glucose (74-106) mg/dL Lactic Acid (0.4-2.0) mmol/L Calcium (8.5-10.1) mg/dL Magnesium (1.8-2.4) mg/dL Total Bilirubin (0.2-1.0) mg/dL AST (15-37) U/L ALT (12-78) U/L Alkaline Phosphatase (46-116) U/L Lactate Dehydrogenase 76 L (85-227) U/L C-Reactive Protein 5.90 H (0.0-0.3) mg/dL Total Protein (6.4-8.2) g/dL Albumin (3.4-5.0) g/dL Globulin (2.3-3.5) g/dL Albumin/Globulin Ratio (1.2-2.2) Lipase 78 (73-393) U/L Urine Color (YELLOW) Urine Appearance (CLEAR) Urine pH (5.0-8.0) Ur Specific [place] (1.008-1.030) Urine Protein (NEGATIVE) mg/dL Urine Glucose (UA) (NEGATIVE) mg/dL Urine Ketones (NEGATIVE) mg/dL Urine Occult Blood (NEGATIVE) Urine Nitrite (NEGATIVE) Urine Bilirubin (NEGATIVE) Urine Urobilinogen (0.2-1.0) EU/dL Ur Leukocyte Esterase (NEGATIVE) Urine RBC (0-5) Urine WBC (0-5) Ur Epithelial Cells Amorphous Sediment Urine Bacteria Urine Mucus Ethyl Alcohol mg/dL 06/07/19 06/07/19 06/07/19 Range/Units 13:37 13:37 14:55 WBC (4.5-11.0) K/uL RBC (4.30-5.90) M/uL Hgb (12.0-15.0) g/dL Hct (40.0-54.0) % MCV (80-98) fL MCH (27-31) pg MCHC (32-36) % Plt Count (150-400) K/uL Neut % (Auto) (36-66) % Lymph % (Auto) (24-44) % [place] % (Auto) (2-6) % Eos % (Auto) (2-4) % Baso % (Auto) (0-1) % PT 13.2 H (9.5-12.0) sec INR 1.24 H (0.80-1.20) Sodium 134 L (140-148) mmol/L Potassium 3.3 L (3.6-5.2) mmol/L Chloride 92 L (100-108) mmol/L Carbon Dioxide 30 (21-32) mmol/L Anion Gap 15.3 H (5.0-14.0) mmol/L BUN 7 D (7-18) mg/dL Creatinine 0.9 (0.8-1.3) mg/dL Est Cr Clr Drug Dosing 148.66 mL/min Estimated GFR (MDRD) > 60 (>60) Glucose 113 H (74-106) mg/dL Lactic Acid (0.4-2.0) mmol/L Calcium 9.5 (8.5-10.1) mg/dL Magnesium 1.6 L (1.8-2.4) mg/dL Total Bilirubin 17.9 H D (0.2-1.0) mg/dL AST 145 H (15-37) U/L ALT 62 (12-78) U/L Alkaline Phosphatase 116 (46-116) U/L Lactate Dehydrogenase (85-227) U/L C-Reactive Protein (0.0-0.3) mg/dL Total Protein 7.6 (6.4-8.2) g/dL Albumin 3.2 L (3.4-5.0) g/dL Globulin 4.4 H (2.3-3.5) g/dL Albumin/Globulin Ratio 0.7 L (1.2-2.2) Lipase (73-393) U/L Urine Color (YELLOW) Urine Appearance (CLEAR) Urine pH (5.0-8.0) Ur Specific [place] (1.008-1.030) Urine Protein (NEGATIVE) mg/dL Urine Glucose (UA) (NEGATIVE) mg/dL Urine Ketones (NEGATIVE) mg/dL Urine Occult Blood (NEGATIVE) Urine Nitrite (NEGATIVE) Urine Bilirubin (NEGATIVE) Urine Urobilinogen (0.2-1.0) EU/dL Ur Leukocyte Esterase (NEGATIVE) Urine RBC (0-5) Urine WBC (0-5) Ur Epithelial Cells Amorphous Sediment Urine Bacteria Urine Mucus Ethyl Alcohol mg/dL 06/08/19 06/08/19 06/08/19 Range/Units 04:15 04:15 04:15 WBC 9.7 (4.5-11.0) K/uL RBC 2.76 L (4.30-5.90) M/uL Hgb 10.3 L (12.0-15.0) g/dL Hct 29.8 L (40.0-54.0) % MCV 108 H (80-98) fL MCH 37 H (27-31) pg MCHC 35 (32-36) % Plt Count 271 (150-400) K/uL Neut % (Auto) (36-66) % Lymph % (Auto) (24-44) % [place] % (Auto) (2-6) % Eos % (Auto) (2-4) % Baso % (Auto) (0-1) % PT 12.3 H (9.5-12.0) sec INR 1.15 (0.80-1.20) Sodium 135 L (140-148) mmol/L Potassium 4.1 (3.6-5.2) mmol/L Chloride 97 L (100-108) mmol/L Carbon Dioxide 31 (21-32) mmol/L Anion Gap 11.1 (5.0-14.0) mmol/L BUN 11 D (7-18) mg/dL Creatinine 0.7 L (0.8-1.3) mg/dL Est Cr Clr Drug Dosing TNP mL/min Estimated GFR (MDRD) > 60 (>60) Glucose 125 H (74-106) mg/dL Lactic Acid (0.4-2.0) mmol/L Calcium 8.5 (8.5-10.1) mg/dL Magnesium (1.8-2.4) mg/dL Total Bilirubin 14.7 H (0.2-1.0) mg/dL AST 117 H (15-37) U/L ALT 54 (12-78) U/L Alkaline Phosphatase 95 (46-116) U/L Lactate Dehydrogenase (85-227) U/L C-Reactive Protein (0.0-0.3) mg/dL Total Protein 6.6 (6.4-8.2) g/dL Albumin 2.7 L (3.4-5.0) g/dL Globulin 3.9 H (2.3-3.5) g/dL Albumin/Globulin Ratio 0.7 L (1.2-2.2) Lipase (73-393) U/L Urine Color (YELLOW) Urine Appearance (CLEAR) Urine pH (5.0-8.0) Ur Specific [place] (1.008-1.030) Urine Protein (NEGATIVE) mg/dL Urine Glucose (UA) (NEGATIVE) mg/dL Urine Ketones (NEGATIVE) mg/dL Urine Occult Blood (NEGATIVE) Urine Nitrite (NEGATIVE) Urine Bilirubin (NEGATIVE) Urine Urobilinogen (0.2-1.0) EU/dL Ur Leukocyte Esterase (NEGATIVE) Urine RBC (0-5) Urine WBC (0-5) Ur Epithelial Cells Amorphous Sediment Urine Bacteria Urine Mucus Ethyl Alcohol mg/dL 06/08/19 Range/Units 04:15 WBC (4.5-11.0) K/uL RBC (4.30-5.90) M/uL Hgb (12.0-15.0) g/dL Hct (40.0-54.0) % MCV (80-98) fL MCH (27-31) pg MCHC (32-36) % Plt Count (150-400) K/uL Neut % (Auto) (36-66) % Lymph % (Auto) (24-44) % [place] % (Auto) (2-6) % Eos % (Auto) (2-4) % Baso % (Auto) (0-1) % PT (9.5-12.0) sec INR (0.80-1.20) Sodium (140-148) mmol/L Potassium (3.6-5.2) mmol/L Chloride (100-108) mmol/L Carbon Dioxide (21-32) mmol/L Anion Gap (5.0-14.0) mmol/L BUN (7-18) mg/dL Creatinine (0.8-1.3) mg/dL Est Cr Clr Drug Dosing mL/min Estimated GFR (MDRD) (>60) Glucose (74-106) mg/dL Lactic Acid 1.3 (0.4-2.0) mmol/L Calcium (8.5-10.1) mg/dL Magnesium (1.8-2.4) mg/dL Total Bilirubin (0.2-1.0) mg/dL AST (15-37) U/L ALT (12-78) U/L Alkaline Phosphatase (46-116) U/L Lactate Dehydrogenase (85-227) U/L C-Reactive Protein (0.0-0.3) mg/dL Total Protein (6.4-8.2) g/dL Albumin (3.4-5.0) g/dL Globulin (2.3-3.5) g/dL Albumin/Globulin Ratio (1.2-2.2) Lipase (73-393) U/L Urine Color (YELLOW) Urine Appearance (CLEAR) Urine pH (5.0-8.0) Ur Specific [place] (1.008-1.030) Urine Protein (NEGATIVE) mg/dL Urine Glucose (UA) (NEGATIVE) mg/dL Urine Ketones (NEGATIVE) mg/dL Urine Occult Blood (NEGATIVE) Urine Nitrite (NEGATIVE) Urine Bilirubin (NEGATIVE) Urine Urobilinogen (0.2-1.0) EU/dL Ur Leukocyte Esterase (NEGATIVE) Urine RBC (0-5) Urine WBC (0-5) Ur Epithelial Cells Amorphous Sediment Urine Bacteria Urine Mucus Ethyl Alcohol mg/dL Med Orders - Current: Current Medications Apixaban (Eliquis) 5 mg PO BID [facility] Last Admin: 06/08/19 08:20 Dose: 5 mg Folic Acid (Folic Acid) 1 mg PO DAILY [facility] Last Admin: 06/08/19 08:20 Dose: 1 mg Gabapentin (Neurontin) 400 mg PO TID [facility] Stop: 06/12/19 14:01 Last Admin: 06/08/19 08:20 Dose: 400 mg Magnesium Sulfate 2 gm/ Premix 50 mls @ 12.5 mls/hr IV Q6H [facility] Stop: 06/08/19 12:59 Last Admin: 06/08/19 08:21 Dose: 12.5 mls/hr Potassium Chloride/Sodium Chloride (Normal Saline With 20 Meq Kcl) 1,000 mls @ 50 mls/hr IV ASDIRECTED [facility] Ibuprofen (Motrin) 600 mg PO Q6H PRN PRN Reason: Pain/Fever Lorazepam (Ativan) 0.5 mg IVPUSH Q4H PRN PRN Reason: Nausea/Vomiting Lorazepam (Ativan) 0 mg PO ASDIRECTED [facility]; Protocol Last Admin: 06/08/19 07:00 Dose: 1 mg Lorazepam (Ativan) 0 mg IV ASDIRECTED [facility]; Protocol Magnesium Hydroxide (Milk Of Magnesia) 30 ml PO Q12H PRN PRN Reason: Constipation Melatonin (Melatonin) 9 mg PO BEDTIME [facility] Last Admin: 06/07/19 21:39 Dose: 9 mg Morphine Sulfate (Morphine) 15 mg PO Q4H PRN PRN Reason: Pain (moderate 4-6) Nicotine (Habitrol) 21 mg TRDERM DAILY PRN PRN Reason: nicotine craving Last Admin: 06/08/19 07:59 Dose: 21 mg Pantoprazole Sodium (Protonix) 40 mg PO ACBREAKFAST [facility] Last Admin: 06/08/19 08:20 Dose: 40 mg Prednisolone (Orapred 15 Mg/5ml Soln) 40 mg PO DAILY [facility] Last Admin: 06/08/19 08:20 Dose: 40 mg Senna/Docusate Sodium (Senna Plus) 1 tab PO BID PRN PRN Reason: Constipation Thiamine HCl (Vitamin B-1) 100 mg PO DAILY [facility] Last Admin: 06/08/19 08:20 Dose: 100 mg Discontinued Medications Lactated Ringer's (Ringers, Lactated) 1,000 mls @ 500 mls/hr IV .BOLUS [facility] Last Admin: 06/07/19 13:43 Dose: 500 mls/hr Sodium Chloride (Normal Saline) 80 mls @ 3.5 mls/sec IV ONETIME ONE Stop: 06/07/19 14:12 Last Admin: 06/07/19 14:29 Dose: 3 mls/sec Multivitamins/Minerals 10 ml/Thiamine HCl 200 mg/ Chromium/Copper/Manganese/ Seleni/Zn 1 ml/ Lactated Ringer's 1,013 mls @ 500 mls/hr IV ONETIME ONE Stop: 06/07/19 16:49 Last Admin: 06/07/19 22:59 Dose: Not Given Multivitamins/Minerals 10 ml/Thiamine HCl 100 mg/ Folic Acid 1 mg/ Magnesium Sulfate 3 gm/ Sodium Chloride 1,017.2 mls @ 250 mls/hr IV ASDIRECTED [facility] Stop: 06/07/19 20:31 Last Admin: 06/07/19 18:02 Dose: 250 mls/hr Phytonadione 5 mg/ Sodium (Chloride) 50.5 mls @ 100 mls/hr IV NOW ONE Stop: 06/07/19 16:56 Last Admin: 06/07/19 17:25 Dose: 100 mls/hr Potassium Chloride 20 meq/Lidocaine HCl 2 ml/ Sodium Chloride 112 mls @ 50 mls/ hr IV Q2H [facility] Stop: 06/07/19 20:59 Last Admin: 06/07/19 20:37 Dose: 50 mls/hr Sodium Chloride (Normal Saline) Confirm Administered Dose 50 mls @ as directed .ROUTE .ST-MED ONE Stop: 06/07/19 17:18 Last Admin: 06/07/19 17:41 Dose: Not Given Potassium Chloride/Sodium Chloride (Normal Saline With 20 Meq Kcl) 1,000 mls @ 125 mls/hr IV ASDIRECTED [facility] Last Admin: 06/08/19 06:36 Dose: 125 mls/hr Potassium Chloride (Kcl 20 Meq In Water 100 Ml) Confirm Administered Dose 100 mls @ as directed .ROUTE .STK-MED ONE Stop: 06/07/19 18:21 Last Admin: 06/07/19 19:17 Dose: Not Given Potassium Chloride (Kcl 20 Meq In Water 100 Ml) Confirm Administered Dose 100 mls @ as directed .ROUTE .ST-MED ONE Stop: 06/07/19 20:36 Last Admin: 06/07/19 20:39 Dose: Not Given Iopamidol (Isovue-300 (61%)) 150 ml IV ONETIME ONE Stop: 06/07/19 14:12 Last Admin: 06/07/19 14:28 Dose: 150 ml Lidocaine HCl (Xylocaine-Mpf 1%) Confirm Administered Dose 5 ml .ROUTE .STK-MED ONE Stop: 06/07/19 18:21 Last Admin: 06/07/19 19:17 Dose: Not Given Lorazepam (Ativan) 2 mg IVPUSH ONETIME ONE Stop: 06/07/19 13:21 Last Admin: 06/07/19 13:46 Dose: 2 mg Lorazepam (Ativan) 2 mg IVPUSH ONETIME ONE Stop: 06/07/19 16:06 Last Admin: 06/07/19 16:10 Dose: 2 mg Magnesium Oxide (Magnesium Oxide) 400 mg PO ONETIME ONE Stop: 06/07/19 13:12 Last Admin: 06/07/19 13:48 Dose: 400 mg Metoclopramide HCl (Reglan) 5 mg IVPUSH ONETIME ONE Stop: 06/07/19 13:18 Last Admin: 06/07/19 13:44 Dose: 5 mg Nicotine (Habitrol) 21 mg TRDERM DAILY PRN PRN Reason: nicotine craving Pantoprazole Sodium (Protonix Iv) 80 mg IVPUSH .BOLUS WILLIAM Stop: 06/07/19 14:30 Last Admin: 06/07/19 14:06 Dose: 80 mg Phytonadione (Aquamephyton) Confirm Administered Dose 10 mg .ROUTE .STK-MED ONE Stop: 06/07/19 17:17 Last Admin: 06/07/19 17:41 Dose: Not Given Prednisolone (Orapred 15 Mg/5ml Soln) 40 mg PO DAILY [facility] Last Admin: 06/07/19 17:48 Dose: 40 mg Prednisolone (Orapred 15 Mg/5ml Soln) Confirm Administered Dose 15 mg .ROUTE .STK-MED ONE Stop: 06/07/19 17:34 Last Admin: 06/07/19 17:43 Dose: Not Given Sodium Chloride (Saline Flush) 10 ml FLUSH ONETIME ONE Stop: 06/07/19 14:12 Last Admin: 06/07/19 14:29 Dose: 10 ml Sucralfate (Carafate) 1 gm PO ONETIME ONE Stop: 06/07/19 13:19 Last Admin: 06/07/19 13:55 Dose: 1 gm Thiamine HCl (Vitamin B-1) 100 mg PO ONETIME ONE Stop: 06/07/19 13:12 Last Admin: 06/07/19 13:48 Dose: 100 mg - Exam Quality Assessment: No: Supplemental Oxygen General: Alert, Oriented, Cooperative, No Acute Distress Lungs: Clear to Auscultation, Normal Respiratory Effort Cardiovascular: Regular Rhythm, Tachycardia GI/Abdominal Exam: Soft, No Distention Extremities: No Pedal Edema. No: Increased Warmth Skin: Warm, Dry Psy/Mental Status: Alert, Normal Affect - Problem List & Annotations (1) Alcoholic hepatitis SNOMED Code(s): 193337406 Code(s): K70.10 - ALCOHOLIC HEPATITIS WITHOUT ASCITES Status: Acute Current Visit: Yes Qualifiers: Ascites presence: without ascites Qualified Code(s): K70.10 - Alcoholic hepatitis without ascites (2) Hypokalemia SNOMED Code(s): 46525729 Code(s): E87.6 - HYPOKALEMIA Status: Acute Current Visit: Yes (3) Leg DVT (deep venous thromboembolism), chronic SNOMED Code(s): 359754255, 670610702, [id number] Code(s): I82.509 - CHRONIC EMBOLISM AND THOMBOS UNSP DEEP VN UNSP LOW EXTRM Status: Chronic Current Visit: No Qualifiers: Laterality: left Qualified Code(s): I82.502 - Chronic embolism and thrombosis of unspecified deep veins of left lower extremity - Problem List Review Problem List Initiated/Reviewed/Updated: Yes - My Orders Last 24 Hours: My Active Orders 06/07/19 15:56 Resuscitation Status Routine 06/07/19 16:26 Patient Status [ADT] Routine CIWAA Assessment [RC] Q1H Cardiac Monitoring [RC] Q6H Intake and Output [RC] QSHIFT Notify Provider Vital Signs [RC] ASDIRECTED Notify Provider [RC] PRN Oxygen Therapy [RC] PRN Up With Assistance [RC] ASDIRECTED VTE/DVT Education [RC] Per Unit Routine Vital Signs [RC] Q2H Docusate Sodium/Sennosides [Senna Plus] 1 tab PO BID PRN Ibuprofen [Motrin] 600 mg PO Q6H PRN LORazepam [Ativan] 0.5 mg IVPUSH Q4H PRN LORazepam [Ativan] See Protocol IV ASDIRECTED LORazepam [Ativan] See Protocol PO ASDIRECTED Magnesium Hydroxide [Milk of Magnesia] 30 ml PO Q12H PRN Morphine 15 mg PO Q4H PRN 06/07/19 17:00 Nicotine [Habitrol] 21 mg TRDERM DAILY PRN 06/07/19 21:00 Apixaban [Eliquis] 5 mg PO BID Gabapentin [Neurontin] 400 mg PO TID Magnesium Sulfate/Water [Magnesium Sulfate in Water Premix] 2 gm Premix Bag 1 bag IV Q6H Melatonin 9 mg PO BEDTIME 06/08/19 07:30 Pantoprazole [ProTONIX] 40 mg PO ACBREAKFAST 06/08/19 09:00 Folic Acid 1 mg PO DAILY Thiamine [Vitamin B-1] 100 mg PO DAILY prednisoLONE [OraPred 15 MG/5ML Soln] 40 mg PO DAILY 06/08/19 09:30 NS + KCl 20mEq/L [Normal Saline with 20 mEq KCl] 1,000 ml IV ASDIRECTED 06/08/19 Breakfast Regular Diet [DIET] 06/09/19 05:00 CBC W/O DIFF,HEMOGRAM [HEME] Timed (1) COMPREHENSIVE METABOLIC PN,CMP [CHEM] Timed - Plan Plan:: ASSESSMENT AND PLAN - Alcoholic hepatitis without ascites - acute onset over the past few days with jaundice, abdominal pain, nausea and vomiting. Bilirubin level has improved and symptomatically he is feeling better. INR slightly better after vitamin K yesterday. -Prednisolone 40 mg daily -Saline lock IV -Repeat labs in the morning Alcohol abuse - long-standing history of heavy alcohol use in very large quantities. Now complicated by alcoholic hepatitis. He is interested in cessation at this time. Patient reports that alcohol is consumed to help coverup underlying anxiety and depression. No strong evidence for alcohol withdrawal at this time. -Encourage cessation -CIWAA protocol with lorazepam if indicated -Gabapentin -Further discussions about inpatient versus outpatient treatment after the hospital stay Hypokalemia - improved with supplementation. - repeat in the morning Tobacco dependence - patient smokes one pack per day. Planning to tackle the alcohol issue now and tobacco down the road. -Nicotine patch as needed History of DVT - patient chronically anticoagulated with Xarelto. This medication is contraindicated with liver dysfunction. -Eliquis Maintenance issues - - DVT prophylaxis - Eliquis - GI prophylaxis - PPI - Nutrition - regular diet Disposition - I would anticipate discharge home after the hospital stay Primary care physician - Felecia Esquivel M.D.
[2019-06-08] MEDS ORDERED: NS + KCl 20mEq/L 1,000 ML IV SCH (09:30)
[2019-06-08] MEDS: Melatonin 3 MG Tab PO SCH (20:49)
[2019-06-09] MEDS: LORazepam 1 MG Tab PO SCH ×8 (01:56→19:58)
[2019-06-09] MEDS: LORazepam 2 MG/ML SDV IV SCH ×4 (03:22→22:10)
[2019-06-09] MEDS: Pantoprazole 40 MG Tab.CR PO SCH (07:58)
[2019-06-09] MEDS: Folic Acid 1 MG Tab PO SCH (08:03)
[2019-06-09] MEDS: Apixaban 5 MG Tab PO SCH ×2 (08:04→20:58)
[2019-06-09] MEDS: Thiamine 100 MG Tab PO SCH (08:04)
[2019-06-09] MEDS: prednisoLONE 15 MG/5 ML Soln UD Cup PO SCH (08:05)
[2019-06-09] MEDS: Gabapentin 400 MG Cap PO SCH ×3 (08:05→20:58)
[2019-06-09] MEDS: Nicotine 21 MG/24 Hr Patch TRDERM PRN (08:35)
[2019-06-09] MEDS: Morphine 15 MG Tab PO PRN ×2 (08:49→20:23)
--- NOTE | 2019-06-09 09:43 | PCM.PN ---
- General Info Date of Service: 06/09/19 Subjective Update: Mr. Solano has begun to experience more symptoms of withdrawal, reports tremors and hallucinations. Remains mildly tachycardic. Bilirubin has improved to 9.5. Reports long-standing difficulty with anxiety which may be a factor in his underlying alcohol dependence. Functional Status: Reports: Tolerating Diet, Ambulating, Urinating - Review of Systems General: Reports: Weakness, Fatigue, Malaise. Denies: Fever, Chills Pulmonary: Reports: No Symptoms Cardiovascular: Reports: No Symptoms Gastrointestinal: Reports: No Symptoms Psychiatric: Reports: Hallucinations - Patient Data Vitals - Most Recent: Last Vital Signs Temp 95.6 F 06/09/19 08:00 Pulse 97 06/09/19 08:00 Resp 23 H 06/09/19 08:00 BP 125/85 06/09/19 08:00 Pulse Ox 97 06/09/19 08:00 Weight - Most Recent: 338 lb 10.08 oz I&O - Last 24 Hours: Intake & Output 06/08/19 06/09/19 06/09/19 22:59 06:59 14:59 Intake Total 1950 Output Total 425 Balance 1525 Lab Results Last 24 Hours: Laboratory Results - last 24 hr 06/09/19 06/09/19 Range/Units 04:27 04:27 WBC 11.4 H (4.5-11.0) K/uL RBC 2.60 L (4.30-5.90) M/uL Hgb 9.5 L (12.0-15.0) g/dL Hct 28.6 L (40.0-54.0) % MCV 110 H (80-98) fL MCH 37 H (27-31) pg MCHC 33 (32-36) % Plt Count 316 (150-400) K/uL Sodium 136 L (140-148) mmol/L Potassium 3.8 (3.6-5.2) mmol/L Chloride 99 L (100-108) mmol/L Carbon Dioxide 30 (21-32) mmol/L Anion Gap 10.8 (5.0-14.0) mmol/L BUN 11 (7-18) mg/dL Creatinine 0.9 (0.8-1.3) mg/dL Est Cr Clr Drug Dosing 149.45 mL/min Estimated GFR (MDRD) > 60 (>60) Glucose 102 (74-106) mg/dL Calcium 8.5 (8.5-10.1) mg/dL Total Bilirubin 9.5 H (0.2-1.0) mg/dL AST 150 H (15-37) U/L ALT 66 (12-78) U/L Alkaline Phosphatase 97 (46-116) U/L Total Protein 6.3 L (6.4-8.2) g/dL Albumin 2.6 L (3.4-5.0) g/dL Globulin 3.7 H (2.3-3.5) g/dL Albumin/Globulin Ratio 0.7 L (1.2-2.2) Cornelius Results Last 24 Hours: Microbiology 06/07/19 13:37 Aerobic Blood Culture - Preliminary Blood - Venous - Iv Start NO GROWTH AFTER 1 DAY Anaerobic Blood Culture - Preliminary NO GROWTH AFTER 1 DAY 06/07/19 13:30 Aerobic Blood Culture - Preliminary Blood - Arm, Left NO GROWTH AFTER 1 DAY Anaerobic Blood Culture - Preliminary NO GROWTH AFTER 1 DAY Med Orders - Current: Current Medications Apixaban (Eliquis) 5 mg PO BID [facility] Last Admin: 06/09/19 08:04 Dose: 5 mg Citalopram Hydrobromide (Celexa) 20 mg PO DAILY [facility] Folic Acid (Folic Acid) 1 mg PO DAILY [facility] Last Admin: 06/09/19 08:03 Dose: 1 mg Gabapentin (Neurontin) 400 mg PO TID [facility] Stop: 06/11/19 14:01 Last Admin: 06/09/19 08:05 Dose: 400 mg Ibuprofen (Motrin) 600 mg PO Q6H PRN PRN Reason: Pain/Fever Lorazepam (Ativan) 0.5 mg IVPUSH Q4H PRN PRN Reason: Nausea/Vomiting Lorazepam (Ativan) 0 mg PO ASDIRECTED [facility]; Protocol Last Admin: 06/09/19 08:47 Dose: 2 mg Lorazepam (Ativan) 0 mg IV ASDIRECTED [facility]; Protocol Last Admin: 06/09/19 06:25 Dose: 2 mg Magnesium Hydroxide (Milk Of Magnesia) 30 ml PO Q12H PRN PRN Reason: Constipation Melatonin (Melatonin) 9 mg PO BEDTIME [facility] Last Admin: 06/08/19 20:49 Dose: 9 mg Morphine Sulfate (Morphine) 15 mg PO Q4H PRN PRN Reason: Pain (moderate 4-6) Last Admin: 06/09/19 08:49 Dose: 15 mg Nicotine (Habitrol) 21 mg TRDERM DAILY PRN PRN Reason: nicotine craving Last Admin: 06/09/19 08:35 Dose: 21 mg Pantoprazole Sodium (Protonix) 40 mg PO ACBREAKFAST [facility] Last Admin: 06/09/19 07:58 Dose: 40 mg Prednisolone (Orapred 15 Mg/5ml Soln) 40 mg PO DAILY [facility] Last Admin: 06/09/19 08:05 Dose: 40 mg Senna/Docusate Sodium (Senna Plus) 1 tab PO BID PRN PRN Reason: Constipation Thiamine HCl (Vitamin B-1) 100 mg PO DAILY [facility] Last Admin: 06/09/19 08:04 Dose: 100 mg Discontinued Medications Lactated Ringer's (Ringers, Lactated) 1,000 mls @ 500 mls/hr IV .BOLUS [facility] Last Admin: 06/07/19 13:43 Dose: 500 mls/hr Sodium Chloride (Normal Saline) 80 mls @ 3.5 mls/sec IV ONETIME ONE Stop: 06/07/19 14:12 Last Admin: 06/07/19 14:29 Dose: 3 mls/sec Multivitamins/Minerals 10 ml/Thiamine HCl 200 mg/ Chromium/Copper/Manganese/ Seleni/Zn 1 ml/ Lactated Ringer's 1,013 mls @ 500 mls/hr IV ONETIME ONE Stop: 06/07/19 16:49 Last Admin: 06/07/19 22:59 Dose: Not Given Multivitamins/Minerals 10 ml/Thiamine HCl 100 mg/ Folic Acid 1 mg/ Magnesium Sulfate 3 gm/ Sodium Chloride 1,017.2 mls @ 250 mls/hr IV ASDIRECTED [facility] Stop: 06/07/19 20:31 Last Admin: 06/07/19 18:02 Dose: 250 mls/hr Magnesium Sulfate 2 gm/ Premix 50 mls @ 12.5 mls/hr IV Q6H [facility] Stop: 06/08/19 12:59 Last Admin: 06/08/19 08:21 Dose: 12.5 mls/hr Phytonadione 5 mg/ Sodium (Chloride) 50.5 mls @ 100 mls/hr IV NOW ONE Stop: 06/07/19 16:56 Last Admin: 06/07/19 17:25 Dose: 100 mls/hr Potassium Chloride 20 meq/Lidocaine HCl 2 ml/ Sodium Chloride 112 mls @ 50 mls/ hr IV Q2H [facility] Stop: 06/07/19 20:59 Last Admin: 06/07/19 20:37 Dose: 50 mls/hr Sodium Chloride (Normal Saline) Confirm Administered Dose 50 mls @ as directed .ROUTE .STK-MED ONE Stop: 06/07/19 17:18 Last Admin: 06/07/19 17:41 Dose: Not Given Potassium Chloride/Sodium Chloride (Normal Saline With 20 Meq Kcl) 1,000 mls @ 125 mls/hr IV ASDIRECTED [facility] Last Admin: 06/08/19 06:36 Dose: 125 mls/hr Potassium Chloride (Kcl 20 Meq In Water 100 Ml) Confirm Administered Dose 100 mls @ as directed .ROUTE .STK-MED ONE Stop: 06/07/19 18:21 Last Admin: 06/07/19 19:17 Dose: Not Given Potassium Chloride (Kcl 20 Meq In Water 100 Ml) Confirm Administered Dose 100 mls @ as directed .ROUTE .STK-MED ONE Stop: 06/07/19 20:36 Last Admin: 06/07/19 20:39 Dose: Not Given Potassium Chloride/Sodium Chloride (Normal Saline With 20 Meq Kcl) 1,000 mls @ 50 mls/hr IV ASDIRECTED [facility] Last Admin: 06/08/19 21:45 Dose: 50 mls/hr Iopamidol (Isovue-300 (61%)) 150 ml IV ONETIME ONE Stop: 06/07/19 14:12 Last Admin: 06/07/19 14:28 Dose: 150 ml Lidocaine HCl (Xylocaine-Mpf 1%) Confirm Administered Dose 5 ml .ROUTE .STK-MED ONE Stop: 06/07/19 18:21 Last Admin: 06/07/19 19:17 Dose: Not Given Lorazepam (Ativan) 2 mg IVPUSH ONETIME ONE Stop: 06/07/19 13:21 Last Admin: 06/07/19 13:46 Dose: 2 mg Lorazepam (Ativan) 2 mg IVPUSH ONETIME ONE Stop: 06/07/19 16:06 Last Admin: 06/07/19 16:10 Dose: 2 mg Magnesium Oxide (Magnesium Oxide) 400 mg PO ONETIME ONE Stop: 06/07/19 13:12 Last Admin: 06/07/19 13:48 Dose: 400 mg Metoclopramide HCl (Reglan) 5 mg IVPUSH ONETIME ONE Stop: 06/07/19 13:18 Last Admin: 06/07/19 13:44 Dose: 5 mg Nicotine (Habitrol) 21 mg TRDERM DAILY PRN PRN Reason: nicotine craving Pantoprazole Sodium (Protonix Iv) 80 mg IVPUSH .BOLUS [facility] Stop: 06/07/19 14:30 Last Admin: 06/07/19 14:06 Dose: 80 mg Phytonadione (Aquamephyton) Confirm Administered Dose 10 mg .ROUTE .STK-MED ONE Stop: 06/07/19 17:17 Last Admin: 06/07/19 17:41 Dose: Not Given Prednisolone (Orapred 15 Mg/5ml Soln) 40 mg PO DAILY [facility] Last Admin: 06/07/19 17:48 Dose: 40 mg Prednisolone (Orapred 15 Mg/5ml Soln) Confirm Administered Dose 15 mg .ROUTE .STK-MED ONE Stop: 06/07/19 17:34 Last Admin: 06/07/19 17:43 Dose: Not Given Sodium Chloride (Saline Flush) 10 ml FLUSH ONETIME ONE Stop: 06/07/19 14:12 Last Admin: 06/07/19 14:29 Dose: 10 ml Sucralfate (Carafate) 1 gm PO ONETIME ONE Stop: 06/07/19 13:19 Last Admin: 06/07/19 13:55 Dose: 1 gm Thiamine HCl (Vitamin B-1) 100 mg PO ONETIME ONE Stop: 06/07/19 13:12 Last Admin: 06/07/19 13:48 Dose: 100 mg - Exam Quality Assessment: DVT Prophylaxis General: Alert, Oriented, Cooperative, Mild Distress Lungs: Clear to Auscultation, Normal Respiratory Effort Cardiovascular: Regular Rhythm, No Murmurs, Tachycardia GI/Abdominal Exam: Soft, No Organomegaly, Tender. No: Distended, Guarding, Rigid, Rebound Extremities: Non-Tender, No Pedal Edema - Problem List Review Problem List Initiated/Reviewed/Updated: Yes - My Orders Last 24 Hours: My Active Orders 06/09/19 09:36 Convert IV to Saline Lock [OM.PC] Routine 06/09/19 09:45 Citalopram [Celexa] 20 mg PO DAILY 06/10/19 05:00 CBC WITH AUTO DIFF [HEME] Timed COMPREHENSIVE METABOLIC PN,CMP [CHEM] Timed - Plan Plan:: ASSESSMENT AND PLAN - Alcoholic hepatitis without ascites - acute onset over the past few days with jaundice, abdominal pain, nausea and vomiting. Bilirubin level has improved, starting to show more evidence of alcohol withdrawal. -Prednisolone 40 mg daily -Saline lock IV -Repeat labs in the morning Alcohol abuse - long-standing history of heavy alcohol use in very large quantities. Now complicated by alcoholic hepatitis. He is interested in cessation at this time. Patient reports that alcohol is consumed to help coverup underlying anxiety and depression. No strong evidence for alcohol withdrawal at this time. -Encourage cessation -CIWAA protocol with lorazepam if indicated -Gabapentin -Celexa 20 mg by mouth daily -Further discussions about inpatient versus outpatient treatment after the hospital stay Hypokalemia - improved with supplementation. - repeat in the morning Tobacco dependence - patient smokes one pack per day. Planning to tackle the alcohol issue now and tobacco down the road. -Nicotine patch as needed History of DVT - patient chronically anticoagulated with Xarelto. This medication is contraindicated with liver dysfunction. -Eliquis Maintenance issues - - DVT prophylaxis - Eliquis - GI prophylaxis - PPI - Nutrition - regular diet Disposition - I would anticipate discharge home after the hospital stay Primary care physician - Felecia Mccullough - Azeem Lima
[2019-06-09] MEDS: Citalopram 20 MG Tab PO SCH (11:50)
[2019-06-09] MEDS: Melatonin 3 MG Tab PO SCH (20:58)
[2019-06-10] MEDS: LORazepam 2 MG/ML SDV IV SCH ×4 (00:07→06:23)
[2019-06-10] MEDS: Morphine 15 MG Tab PO PRN ×2 (00:08→04:24)
[2019-06-10] MEDS: Folic Acid 1 MG Tab PO SCH (08:27)
[2019-06-10] MEDS: Pantoprazole 40 MG Tab.CR PO SCH (08:29)
[2019-06-10] MEDS: Gabapentin 400 MG Cap PO SCH ×3 (08:30→20:53)
[2019-06-10] MEDS: Citalopram 20 MG Tab PO SCH (08:31)
[2019-06-10] MEDS: Apixaban 5 MG Tab PO SCH ×2 (08:31→20:53)
[2019-06-10] MEDS: Thiamine 100 MG Tab PO SCH (08:31)
[2019-06-10] MEDS: prednisoLONE 15 MG/5 ML Soln UD Cup PO SCH (08:32)
[2019-06-10] MEDS ORDERED: Acetaminophen 325 MG Tab, 50 Tab Bulk Bottle PO PRN (09:53)
--- NOTE | 2019-06-10 09:59 | PCM.PN ---
- General Info Date of Service: 06/10/19 Subjective Update: Mr. Solano has been stable over the last 24 hours. Further modest improvement in bilirubin to 9.1. Tolerating a regular diet without nausea or vomiting. Minimal signs of alcohol withdrawal at the present time. - Review of Systems General: Reports: Weakness. Denies: Fever, Chills Pulmonary: Reports: No Symptoms Cardiovascular: Reports: No Symptoms Gastrointestinal: Reports: No Symptoms Skin: Reports: Jaundice - Patient Data Vitals - Most Recent: Last Vital Signs Temp 96.1 F 06/10/19 08:00 Pulse 105 H 06/10/19 08:00 Resp 19 06/10/19 08:00 BP 144/99 H 06/10/19 08:00 Pulse Ox 94 L 06/10/19 08:00 Weight - Most Recent: 338 lb 10.08 oz I&O - Last 24 Hours: Intake & Output 06/09/19 06/10/19 06/10/19 22:59 06:59 14:59 Intake Total 1600 Balance 1600 Lab Results Last 24 Hours: Laboratory Results - last 24 hr 06/10/19 06/10/19 Range/Units 04:15 04:15 WBC 12.5 H (4.5-11.0) K/uL RBC 2.69 L (4.30-5.90) M/uL Hgb 10.0 L (12.0-15.0) g/dL Hct 29.9 L (40.0-54.0) % MCV 111 H (80-98) fL MCH 37 H (27-31) pg MCHC 33 (32-36) % Plt Count 364 (150-400) K/uL Neut % (Auto) 69 H (36-66) % Lymph % (Auto) 20 L (24-44) % Graham % (Auto) 11 H (2-6) % Eos % (Auto) 0 L (2-4) % Baso % (Auto) 0 (0-1) % Sodium 136 L (140-148) mmol/L Potassium 4.0 (3.6-5.2) mmol/L Chloride 99 L (100-108) mmol/L Carbon Dioxide 30 (21-32) mmol/L Anion Gap 11.0 (5.0-14.0) mmol/L BUN 11 (7-18) mg/dL Creatinine 0.9 (0.8-1.3) mg/dL Est Cr Clr Drug Dosing 149.45 mL/min Estimated GFR (MDRD) > 60 (>60) Glucose 103 (74-106) mg/dL Calcium 8.6 (8.5-10.1) mg/dL Total Bilirubin 9.1 H (0.2-1.0) mg/dL AST 166 H (15-37) U/L ALT 86 H (12-78) U/L Alkaline Phosphatase 100 (46-116) U/L Total Protein 6.7 (6.4-8.2) g/dL Albumin 2.8 L (3.4-5.0) g/dL Globulin 3.9 H (2.3-3.5) g/dL Albumin/Globulin Ratio 0.7 L (1.2-2.2) Cornelius Results Last 24 Hours: Microbiology 06/07/19 13:30 Aerobic Blood Culture - Preliminary Blood - Arm, Left NO GROWTH AFTER 2 DAYS Anaerobic Blood Culture - Preliminary NO GROWTH AFTER 2 DAYS 06/07/19 13:37 Aerobic Blood Culture - Preliminary Blood - Venous - Iv Start NO GROWTH AFTER 2 DAYS Anaerobic Blood Culture - Preliminary NO GROWTH AFTER 2 DAYS Med Orders - Current: Current Medications Apixaban (Eliquis) 5 mg PO BID [facility] Last Admin: 06/10/19 08:31 Dose: 5 mg Citalopram Hydrobromide (Celexa) 20 mg PO DAILY [facility] Last Admin: 06/10/19 08:31 Dose: 20 mg Folic Acid (Folic Acid) 1 mg PO DAILY [facility] Last Admin: 06/10/19 08:27 Dose: 1 mg Gabapentin (Neurontin) 400 mg PO TID [facility] Stop: 06/11/19 14:01 Last Admin: 06/10/19 08:30 Dose: 400 mg Ibuprofen (Motrin) 600 mg PO Q6H PRN PRN Reason: Pain/Fever Lorazepam (Ativan) 0 mg PO ASDIRECTED [facility]; Protocol Last Admin: 06/09/19 19:58 Dose: 2 mg Magnesium Hydroxide (Milk Of Magnesia) 30 ml PO Q12H PRN PRN Reason: Constipation Melatonin (Melatonin) 9 mg PO BEDTIME [facility] Last Admin: 06/09/19 20:58 Dose: 9 mg Nicotine (Habitrol) 21 mg TRDERM DAILY PRN PRN Reason: nicotine craving Last Admin: 06/09/19 08:35 Dose: 21 mg Pantoprazole Sodium (Protonix) 40 mg PO ACBREAKFAST [facility] Last Admin: 06/10/19 08:29 Dose: 40 mg Prednisolone (Orapred 15 Mg/5ml Soln) 40 mg PO DAILY [facility] Last Admin: 06/10/19 08:32 Dose: 40 mg Senna/Docusate Sodium (Senna Plus) 1 tab PO BID PRN PRN Reason: Constipation Thiamine HCl (Vitamin B-1) 100 mg PO DAILY [facility] Last Admin: 06/10/19 08:31 Dose: 100 mg Discontinued Medications Acetaminophen (Tylenol Bulk Bottle) 650 mg PO Q4H PRN PRN Reason: Pain Lactated Ringer's (Ringers, Lactated) 1,000 mls @ 500 mls/hr IV .BOLUS [facility] Last Admin: 06/07/19 13:43 Dose: 500 mls/hr Sodium Chloride (Normal Saline) 80 mls @ 3.5 mls/sec IV ONETIME ONE Stop: 06/07/19 14:12 Last Admin: 06/07/19 14:29 Dose: 3 mls/sec Multivitamins/Minerals 10 ml/Thiamine HCl 200 mg/ Chromium/Copper/Manganese/ Seleni/Zn 1 ml/ Lactated Ringer's 1,013 mls @ 500 mls/hr IV ONETIME ONE Stop: 06/07/19 16:49 Last Admin: 06/07/19 22:59 Dose: Not Given Multivitamins/Minerals 10 ml/Thiamine HCl 100 mg/ Folic Acid 1 mg/ Magnesium Sulfate 3 gm/ Sodium Chloride 1,017.2 mls @ 250 mls/hr IV ASDIRECTED [facility] Stop: 06/07/19 20:31 Last Admin: 06/07/19 18:02 Dose: 250 mls/hr Magnesium Sulfate 2 gm/ Premix 50 mls @ 12.5 mls/hr IV Q6H [facility] Stop: 06/08/19 12:59 Last Admin: 06/08/19 08:21 Dose: 12.5 mls/hr Phytonadione 5 mg/ Sodium (Chloride) 50.5 mls @ 100 mls/hr IV NOW ONE Stop: 06/07/19 16:56 Last Admin: 06/07/19 17:25 Dose: 100 mls/hr Potassium Chloride 20 meq/Lidocaine HCl 2 ml/ Sodium Chloride 112 mls @ 50 mls/ hr IV Q2H [facility] Stop: 06/07/19 20:59 Last Admin: 06/07/19 20:37 Dose: 50 mls/hr Sodium Chloride (Normal Saline) Confirm Administered Dose 50 mls @ as directed .ROUTE .STK-MED ONE Stop: 06/07/19 17:18 Last Admin: 06/07/19 17:41 Dose: Not Given Potassium Chloride/Sodium Chloride (Normal Saline With 20 Meq Kcl) 1,000 mls @ 125 mls/hr IV ASDIRECTED [facility] Last Admin: 06/08/19 06:36 Dose: 125 mls/hr Potassium Chloride (Kcl 20 Meq In Water 100 Ml) Confirm Administered Dose 100 mls @ as directed .ROUTE .[facility]-MED ONE Stop: 06/07/19 18:21 Last Admin: 06/07/19 19:17 Dose: Not Given Potassium Chloride (Kcl 20 Meq In Water 100 Ml) Confirm Administered Dose 100 mls @ as directed .ROUTE .[facility] ONE Stop: 06/07/19 20:36 Last Admin: 06/07/19 20:39 Dose: Not Given Potassium Chloride/Sodium Chloride (Normal Saline With 20 Meq Kcl) 1,000 mls @ 50 mls/hr IV ASDIRECTED [facility] Last Admin: 06/08/19 21:45 Dose: 50 mls/hr Iopamidol (Isovue-300 (61%)) 150 ml IV ONETIME ONE Stop: 06/07/19 14:12 Last Admin: 06/07/19 14:28 Dose: 150 ml Lidocaine HCl (Xylocaine-Mpf 1%) Confirm Administered Dose 5 ml .ROUTE .ST-MED ONE Stop: 06/07/19 18:21 Last Admin: 06/07/19 19:17 Dose: Not Given Lorazepam (Ativan) 2 mg IVPUSH ONETIME ONE Stop: 06/07/19 13:21 Last Admin: 06/07/19 13:46 Dose: 2 mg Lorazepam (Ativan) 2 mg IVPUSH ONETIME ONE Stop: 06/07/19 16:06 Last Admin: 06/07/19 16:10 Dose: 2 mg Lorazepam (Ativan) 0.5 mg IVPUSH Q4H PRN PRN Reason: Nausea/Vomiting Lorazepam (Ativan) 0 mg IV ASDIRECTED [facility]; Protocol Last Admin: 06/10/19 06:23 Dose: 2 mg Magnesium Oxide (Magnesium Oxide) 400 mg PO ONETIME ONE Stop: 06/07/19 13:12 Last Admin: 06/07/19 13:48 Dose: 400 mg Metoclopramide HCl (Reglan) 5 mg IVPUSH ONETIME ONE Stop: 06/07/19 13:18 Last Admin: 06/07/19 13:44 Dose: 5 mg Morphine Sulfate (Morphine) 15 mg PO Q4H PRN PRN Reason: Pain (moderate 4-6) Last Admin: 06/10/19 04:24 Dose: 15 mg Nicotine (Habitrol) 21 mg TRDERM DAILY PRN PRN Reason: nicotine craving Pantoprazole Sodium (Protonix Iv) 80 mg IVPUSH .BOLUS [facility] Stop: 06/07/19 14:30 Last Admin: 06/07/19 14:06 Dose: 80 mg Phytonadione (Aquamephyton) Confirm Administered Dose 10 mg .ROUTE .STK-MED ONE Stop: 06/07/19 17:17 Last Admin: 06/07/19 17:41 Dose: Not Given Prednisolone (Orapred 15 Mg/5ml Soln) 40 mg PO DAILY [facility] Last Admin: 06/07/19 17:48 Dose: 40 mg Prednisolone (Orapred 15 Mg/5ml Soln) Confirm Administered Dose 15 mg .ROUTE .STK-MED ONE Stop: 06/07/19 17:34 Last Admin: 06/07/19 17:43 Dose: Not Given Sodium Chloride (Saline Flush) 10 ml FLUSH ONETIME ONE Stop: 06/07/19 14:12 Last Admin: 06/07/19 14:29 Dose: 10 ml Sucralfate (Carafate) 1 gm PO ONETIME ONE Stop: 06/07/19 13:19 Last Admin: 06/07/19 13:55 Dose: 1 gm Thiamine HCl (Vitamin B-1) 100 mg PO ONETIME ONE Stop: 06/07/19 13:12 Last Admin: 06/07/19 13:48 Dose: 100 mg - Exam Quality Assessment: DVT Prophylaxis General: Sedated, Lethargic Lungs: Clear to Auscultation, Normal Respiratory Effort Cardiovascular: Regular Rate, Regular Rhythm, No Murmurs GI/Abdominal Exam: Soft, Non-Tender, No Organomegaly, No Distention Extremities: Non-Tender, No Pedal Edema - Problem List Review Problem List Initiated/Reviewed/Updated: Yes - My Orders Last 24 Hours: My Active Orders 06/09/19 09:36 Convert IV to Saline Lock [OM.PC] Routine 06/09/19 09:45 Citalopram [Celexa] 20 mg PO DAILY 06/10/19 09:53 Patient Status [ADT] Routine - Plan Plan:: ASSESSMENT AND PLAN - Alcoholic hepatitis without ascites - acute onset over the past few days with jaundice, abdominal pain, nausea and vomiting. Bilirubin level has improved, minimal symptoms of alcohol withdrawal -Prednisolone 40 mg daily -Saline lock IV -Repeat labs in the morning Alcohol abuse - long-standing history of heavy alcohol use in very large quantities. Now complicated by alcoholic hepatitis. He is interested in cessation at this time. Patient reports that alcohol is consumed to help coverup underlying anxiety and depression. No strong evidence for alcohol withdrawal at this time. -Encourage cessation -CIWAA protocol with lorazepam as indicated -Gabapentin -Celexa 20 mg by mouth daily -Further discussions about inpatient versus outpatient treatment after the hospital stay Hypokalemia - improved with supplementation. - repeat in the morning Tobacco dependence - patient smokes one pack per day. Planning to tackle the alcohol issue now and tobacco down the road. -Nicotine patch as needed History of DVT - patient chronically anticoagulated with Xarelto. This medication is contraindicated with liver dysfunction. -Eliquis Maintenance issues - - DVT prophylaxis - Eliquis - GI prophylaxis - PPI - Nutrition - regular diet Disposition - I would anticipate discharge home after the hospital stay Primary care physician - Felecia Lima
[2019-06-10] MEDS: LORazepam 1 MG Tab PO SCH (18:21)
[2019-06-10] MEDS: Nicotine 21 MG/24 Hr Patch TRDERM PRN (20:30)
[2019-06-10] MEDS: Melatonin 3 MG Tab PO SCH (20:53)
[2019-06-10] MEDS: Ibuprofen 600 MG Tab PO PRN (21:03)
[2019-06-11] MEDS: LORazepam 1 MG Tab PO SCH ×2 (02:45→06:54)
[2019-06-11] MEDS: Ibuprofen 600 MG Tab PO PRN (06:33)
[2019-06-11] MEDS: Pantoprazole 40 MG Tab.CR PO SCH (07:25)
[2019-06-11] MEDS: Apixaban 5 MG Tab PO SCH (08:09)
[2019-06-11] MEDS: prednisoLONE 15 MG/5 ML Soln UD Cup PO SCH (08:10)
[2019-06-11] MEDS: Folic Acid 1 MG Tab PO SCH (08:10)
[2019-06-11] MEDS: Thiamine 100 MG Tab PO SCH (08:10)
[2019-06-11] MEDS: Citalopram 20 MG Tab PO SCH (08:10)
[2019-06-11] MEDS: Gabapentin 400 MG Cap PO SCH (08:10)
[2019-06-11 08:46] VITALS: BP 155/95
--- NOTE | 2019-06-11 12:47 | PCM.DCSUM1 ---
Discharge Summary - Hospital Course Brief History: Mr. Solano is a 28-year-old gentleman who was admitted through the emergency department with jaundice, abdominal pain, nausea, vomiting, secondary to acute alcoholic hepatitis. - Discharge Data Discharge Date: 06/11/19 Discharge Disposition: Home, Self-Care 01 Condition: Fair - Discharge Diagnosis/Problem(s) (1) Alcohol withdrawal SNOMED Code(s): 087160467 ICD Code: F10.239 - ALCOHOL DEPENDENCE WITH WITHDRAWAL, UNSPECIFIED Status : Acute Current Visit: Yes (2) Alcoholic hepatitis SNOMED Code(s): 245081407 ICD Code: K70.10 - ALCOHOLIC HEPATITIS WITHOUT ASCITES Status: Acute Current Visit: Yes Qualifiers: Ascites presence: without ascites Qualified Code(s): K70.10 - Alcoholic hepatitis without ascites (3) Hypokalemia SNOMED Code(s): 90719164 ICD Code: E87.6 - HYPOKALEMIA Status: Acute Current Visit: Yes (4) Abdominal pain SNOMED Code(s): 29596076 ICD Code: R10.9 - UNSPECIFIED ABDOMINAL PAIN Status: Acute Current Visit : Yes (5) Vomiting SNOMED Code(s): 838532170 ICD Code: R11.10 - VOMITING, UNSPECIFIED Status: Acute Current Visit: Yes (6) Cirrhosis of liver SNOMED Code(s): 35551920 ICD Code: K74.60 - UNSPECIFIED CIRRHOSIS OF LIVER Status: Acute Current Visit: Yes - Patient Summary/Data Hospital Course: Shahbaz presented to the emergency room with concerns about yellow changes of his skin and eyes. He first noticed these about 5 or 6 days prior to admission. Also starting at that time were abdominal pain, nausea, vomiting and fatigue. Abdominal pain is described as mild achy pain in the right upper abdomen as well as near his belly button on the right side. The pain does not radiate. It is worse with movements and in particular laying on the right side. Pain does improve when he lays on his left side. He hasn't taken anything to make the pain better. Pain has been stable. Over the past 2 days he has had emesis anytime he tries to drink anything including water. He has not had any solid food for about 5 days. Up until yesterday he was able to continued drinking alcohol. He feels very fatigued. He has some numbness and tingling in his feet. He has not had any fevers or chills. No complaints of shortness of breath but he does have a cough for several days. No sick contacts or recent travel. He does admit to drinking at least 1 L of vodka per day and has done so for some time with the exception of one month earlier in the summer where he had quit drinking. Workup in the emergency room was suggestive of alcoholic hepatitis with a bilirubin greater than 17 and a discriminant function greater than 32. He has a mild elevation of his INR as well as hypokalemia and hypomagnesemia. Imaging suggested hepatosplenomegaly with cirrhosis. He was admitted for management of acute alcoholic hepatitis. On admission he was given IV fluids for hydration and started on prednisolone 40 mg daily because of discriminant function of greater than 32. Medications for given as needed for management of nausea vomiting as well as pain. He was started on gabapentin 400 mg every 8 hours for management of alcohol withdrawal. By the time of discharge he was able to tolerate a regular diet with no further abdominal pain nausea or vomiting. He will be continued on the gabapentin after discharge now 200 mg every 8 hours for an additional 4 days. He is been told strongly that he if he continues to drink will likely result in liver failure and . He is had ongoing difficulty with depression and anxiety and was started on Celexa 20 mg daily. The prednisone will be continued 40 mg daily for an additional 3 days. He is planning on starting on AA or discharge and will have a role 25 assessment performed tomorrow. The hope is that he will be able to get into an inpatient treatment program. He will require follow-up with primary care provider early next week and a reassessment of liver function studies with a CMP. - Patient Instructions Diet: Usual Diet as Tolerated Activity: As Tolerated Other/Special Instructions: Avoid all alcohol use. Proceed with inpatient chemical dependency treatment after rule 25 assessment has been accomplished. Follow-up appointment with primary care provider early next week, CMP should be obtained at the time of follow-up appointment. - Discharge Plan *PRESCRIPTION DRUG MONITORING PROGRAM REVIEWED*: Not Applicable *COPY OF PRESCRIPTION DRUG MONITORING REPORT IN PATIENT JOSE: Not Applicable Prescriptions/Med Rec: Citalopram [Citalopram HBr] 20 mg PO DAILY #30 tablet Gabapentin [Neurontin] 200 mg PO Q8H #24 cap predniSONE [Prednisone] 20 mg PO DAILY #6 tablet Home Medications: Home Meds Rivaroxaban [Xarelto] 20 mg PO DAILY 07/26/18 [History] Citalopram [Citalopram HBr] 20 mg PO DAILY #30 tablet 06/11/19 [Rx] Gabapentin [Neurontin] 200 mg PO Q8H #24 cap 06/11/19 [Rx] predniSONE [Prednisone] 20 mg PO DAILY #6 tablet 06/11/19 [Rx] Referrals: Fannie Dinero PA [Physician Child Care Nurse] - 06/16/19 11:30 am (Please arrive at 1045 for your appointment to register and have labs drawn prior to appointment with provider..) - Discharge Summary/Plan Comment DC Time >30 min.: No - Patient Data Vitals - Most Recent: Last Vital Signs Temp 98.1 F 06/11/19 08:00 Pulse 99 06/11/19 08:00 Resp 16 06/11/19 08:00 BP 155/95 H 06/11/19 08:00 Pulse Ox 96 06/11/19 08:00 Weight - Most Recent: 338 lb 10.08 oz I&O - Last 24 hours: Intake & Output 06/10/19 06/11/19 06/11/19 22:59 06:59 14:59 Intake Total 1740 Balance 1740 Lab Results - Last 24 hrs: Laboratory Results - last 24 hr 06/11/19 Range/Units 05:40 Sodium 136 L (140-148) mmol/L Potassium 3.9 (3.6-5.2) mmol/L Chloride 99 L (100-108) mmol/L Carbon Dioxide 29 (21-32) mmol/L Anion Gap 11.9 (5.0-14.0) mmol/L BUN 14 (7-18) mg/dL Creatinine 0.9 (0.8-1.3) mg/dL Est Cr Clr Drug Dosing 149.45 mL/min Estimated GFR (MDRD) > 60 (>60) Glucose 95 (74-106) mg/dL Calcium 8.8 (8.5-10.1) mg/dL Total Bilirubin 7.8 H (0.2-1.0) mg/dL AST 162 H (15-37) U/L ALT 91 H (12-78) U/L Alkaline Phosphatase 94 (46-116) U/L Total Protein 6.2 L (6.4-8.2) g/dL Albumin 2.6 L (3.4-5.0) g/dL Globulin 3.6 H (2.3-3.5) g/dL Albumin/Globulin Ratio 0.7 L (1.2-2.2) LEAH Results - Last 24 hrs: Microbiology 06/07/19 13:37 Aerobic Blood Culture - Preliminary Blood - Venous - Iv Start NO GROWTH AFTER 3 DAYS Anaerobic Blood Culture - Preliminary NO GROWTH AFTER 3 DAYS 06/07/19 13:30 Aerobic Blood Culture - Preliminary Blood - Arm, Left NO GROWTH AFTER 3 DAYS Anaerobic Blood Culture - Preliminary NO GROWTH AFTER 3 DAYS Med Orders - Current: Current Medications Apixaban (Eliquis) 5 mg PO BID [facility] Last Admin: 06/11/19 08:09 Dose: 5 mg Citalopram Hydrobromide (Celexa) 20 mg PO DAILY [facility] Last Admin: 06/11/19 08:10 Dose: 20 mg Folic Acid (Folic Acid) 1 mg PO DAILY [facility] Last Admin: 06/11/19 08:10 Dose: 1 mg Gabapentin (Neurontin) 400 mg PO TID [facility] Stop: 06/11/19 14:01 Last Admin: 06/11/19 08:10 Dose: 400 mg Ibuprofen (Motrin) 600 mg PO Q6H PRN PRN Reason: Pain/Fever Last Admin: 06/11/19 06:33 Dose: 600 mg Lorazepam (Ativan) 0 mg PO ASDIRECTED [facility]; Protocol Last Admin: 06/11/19 06:54 Dose: 1 mg Magnesium Hydroxide (Milk Of Magnesia) 30 ml PO Q12H PRN PRN Reason: Constipation Melatonin (Melatonin) 9 mg PO BEDTIME [facility] Last Admin: 06/10/19 20:53 Dose: 9 mg Nicotine (Habitrol) 21 mg TRDERM DAILY PRN PRN Reason: nicotine craving Last Admin: 06/10/19 20:30 Dose: 21 mg Pantoprazole Sodium (Protonix) 40 mg PO ACBREAKFAST [facility] Last Admin: 06/11/19 07:25 Dose: 40 mg Prednisolone (Orapred 15 Mg/5ml Soln) 40 mg PO DAILY [facility] Last Admin: 06/11/19 08:10 Dose: 40 mg Senna/Docusate Sodium (Senna Plus) 1 tab PO BID PRN PRN Reason: Constipation Thiamine HCl (Vitamin B-1) 100 mg PO DAILY [facility] Last Admin: 06/11/19 08:10 Dose: 100 mg Discontinued Medications Acetaminophen (Tylenol Bulk Bottle) 650 mg PO Q4H PRN PRN Reason: Pain Lactated Ringer's (Ringers, Lactated) 1,000 mls @ 500 mls/hr IV .BOLUS [facility] Last Admin: 06/07/19 13:43 Dose: 500 mls/hr Sodium Chloride (Normal Saline) 80 mls @ 3.5 mls/sec IV ONETIME ONE Stop: 06/07/19 14:12 Last Admin: 06/07/19 14:29 Dose: 3 mls/sec Multivitamins/Minerals 10 ml/Thiamine HCl 200 mg/ Chromium/Copper/Manganese/ Seleni/Zn 1 ml/ Lactated Ringer's 1,013 mls @ 500 mls/hr IV ONETIME ONE Stop: 06/07/19 16:49 Last Admin: 06/07/19 22:59 Dose: Not Given Multivitamins/Minerals 10 ml/Thiamine HCl 100 mg/ Folic Acid 1 mg/ Magnesium Sulfate 3 gm/ Sodium Chloride 1,017.2 mls @ 250 mls/hr IV ASDIRECTED [facility] Stop: 06/07/19 20:31 Last Admin: 06/07/19 18:02 Dose: 250 mls/hr Magnesium Sulfate 2 gm/ Premix 50 mls @ 12.5 mls/hr IV Q6H [facility] Stop: 06/08/19 12:59 Last Admin: 06/08/19 08:21 Dose: 12.5 mls/hr Phytonadione 5 mg/ Sodium (Chloride) 50.5 mls @ 100 mls/hr IV NOW ONE Stop: 06/07/19 16:56 Last Admin: 06/07/19 17:25 Dose: 100 mls/hr Potassium Chloride 20 meq/Lidocaine HCl 2 ml/ Sodium Chloride 112 mls @ 50 mls/ hr IV Q2H [facility] Stop: 06/07/19 20:59 Last Admin: 06/07/19 20:37 Dose: 50 mls/hr Sodium Chloride (Normal Saline) Confirm Administered Dose 50 mls @ as directed .ROUTE .STK-MED ONE Stop: 06/07/19 17:18 Last Admin: 06/07/19 17:41 Dose: Not Given Potassium Chloride/Sodium Chloride (Normal Saline With 20 Meq Kcl) 1,000 mls @ 125 mls/hr IV ASDIRECTED [facility] Last Admin: 06/08/19 06:36 Dose: 125 mls/hr Potassium Chloride (Kcl 20 Meq In Water 100 Ml) Confirm Administered Dose 100 mls @ as directed .ROUTE .STK-MED ONE Stop: 06/07/19 18:21 Last Admin: 06/07/19 19:17 Dose: Not Given Potassium Chloride (Kcl 20 Meq In Water 100 Ml) Confirm Administered Dose 100 mls @ as directed .ROUTE .STK-MED ONE Stop: 06/07/19 20:36 Last Admin: 06/07/19 20:39 Dose: Not Given Potassium Chloride/Sodium Chloride (Normal Saline With 20 Meq Kcl) 1,000 mls @ 50 mls/hr IV ASDIRECTED [facility] Last Admin: 06/08/19 21:45 Dose: 50 mls/hr Iopamidol (Isovue-300 (61%)) 150 ml IV ONETIME ONE Stop: 06/07/19 14:12 Last Admin: 06/07/19 14:28 Dose: 150 ml Lidocaine HCl (Xylocaine-Mpf 1%) Confirm Administered Dose 5 ml .ROUTE .STK-MED ONE Stop: 06/07/19 18:21 Last Admin: 06/07/19 19:17 Dose: Not Given Lorazepam (Ativan) 2 mg IVPUSH ONETIME ONE Stop: 06/07/19 13:21 Last Admin: 06/07/19 13:46 Dose: 2 mg Lorazepam (Ativan) 2 mg IVPUSH ONETIME ONE Stop: 06/07/19 16:06 Last Admin: 06/07/19 16:10 Dose: 2 mg Lorazepam (Ativan) 0.5 mg IVPUSH Q4H PRN PRN Reason: Nausea/Vomiting Lorazepam (Ativan) 0 mg IV ASDIRECTED [facility]; Protocol Last Admin: 06/10/19 06:23 Dose: 2 mg Magnesium Oxide (Magnesium Oxide) 400 mg PO ONETIME ONE Stop: 06/07/19 13:12 Last Admin: 06/07/19 13:48 Dose: 400 mg Metoclopramide HCl (Reglan) 5 mg IVPUSH ONETIME ONE Stop: 06/07/19 13:18 Last Admin: 06/07/19 13:44 Dose: 5 mg Morphine Sulfate (Morphine) 15 mg PO Q4H PRN PRN Reason: Pain (moderate 4-6) Last Admin: 06/10/19 04:24 Dose: 15 mg Nicotine (Habitrol) 21 mg TRDERM DAILY PRN PRN Reason: nicotine craving Pantoprazole Sodium (Protonix Iv) 80 mg IVPUSH .BOLUS [facility] Stop: 06/07/19 14:30 Last Admin: 06/07/19 14:06 Dose: 80 mg Phytonadione (Aquamephyton) Confirm Administered Dose 10 mg .ROUTE .STK-MED ONE Stop: 06/07/19 17:17 Last Admin: 06/07/19 17:41 Dose: Not Given Prednisolone (Orapred 15 Mg/5ml Soln) 40 mg PO DAILY [facility] Last Admin: 06/07/19 17:48 Dose: 40 mg Prednisolone (Orapred 15 Mg/5ml Soln) Confirm Administered Dose 15 mg .ROUTE .STK-MED ONE Stop: 06/07/19 17:34 Last Admin: 06/07/19 17:43 Dose: Not Given Sodium Chloride (Saline Flush) 10 ml FLUSH ONETIME ONE Stop: 06/07/19 14:12 Last Admin: 06/07/19 14:29 Dose: 10 ml Sucralfate (Carafate) 1 gm PO ONETIME ONE Stop: 06/07/19 13:19 Last Admin: 06/07/19 13:55 Dose: 1 gm Thiamine HCl (Vitamin B-1) 100 mg PO ONETIME ONE Stop: 06/07/19 13:12 Last Admin: 06/07/19 13:48 Dose: 100 mg - Exam General: Reports: Alert, Oriented, Mild Distress Lungs: Reports: Clear to Auscultation, Normal Respiratory Effort Cardiovascular: Reports: Regular Rate, Regular Rhythm, No Murmurs GI/Abdominal Exam: Soft, Non-Tender, No Organomegaly, No Distention Skin: Reports: Other (Jaundice)
== END 2019-06-11 13:16 | disposition home or self-care (01) | DRG 917 ==
LOC: JP.ED 12:44 → JP.ICU 15:55 → JP.MS 06-10 17:50
PROVIDERS: ADMIT Internal Medicine; ATTEND Hospitalist
PROC: 5A1935Z Respiratory Ventilation, Less than 24 Consecutive Hours (ICD-10-PCS; principal; 2019-06-10)
PROC: 0BH18EZ Insertion of Endotracheal Airway into Trachea, Via Natural or Artificial Opening Endoscopic (ICD-10-PCS; 2019-06-10)
DX: T42.4X2A Poisoning by benzodiazepines, intentional self-harm, initial encounter (principal); J96.01 Acute respiratory failure with hypoxia; J96.02 Acute respiratory failure with hypercapnia; E87.2 Acidosis; T44.7X2A Poisoning by beta-adrenoreceptor antagonists, intentional self-harm, initial encounter; T46.5X2A Poisoning by other antihypertensive drugs, intentional self-harm, initial encounter; F10.129 Alcohol abuse with intoxication, unspecified; F32.9 Major depressive disorder, single episode, unspecified; F41.9 Anxiety disorder, unspecified; E87.6 Hypokalemia; R40.2432 Glasgow coma scale score 3-8, at arrival to emergency department; E78.00 Pure hypercholesterolemia, unspecified; I10 Essential (primary) hypertension; G43.909 Migraine, unspecified, not intractable, without status migrainosus; E66.9 Obesity, unspecified; Z88.2 Allergy status to sulfonamides; Z88.8 Allergy status to other drugs, medicaments and biological substances; Z99.81 Dependence on supplemental oxygen; Z79.899 Other long term (current) drug therapy; Z68.28 Body mass index [BMI] 28.0-28.9, adult
CPT/HCPCS: 36415; 71046; 74177; 76705; 80053; 81001; 83605; 83615; 83690; 83735; 85025; 85027; 85610; 86140; 87040; 93005; 96361; 96374; 96375; 96376; 99285-25; A9270-GY; C9113; G0480; J2001; J2060; J2765; J3411; J3430; J3475; J3480; J3490; J7030; J7050; J7120; Q9967

== ENCOUNTER 2020-05-14 11:48 | Inpatient (IN) | payer MEDICAID ==
[2020-05-14] MEDS ORDERED: Ondansetron 4 MG/2 ML SDV IV PRN (12:06)
[2020-05-14] MEDS ORDERED: Acetaminophen 325 MG Tab PO PRN (12:06)
[2020-05-14] MEDS ORDERED: Albuterol 0.083% 2.5 MG/3 ML Neb Soln NEB PRN (12:06)
[2020-05-14] MEDS ORDERED: Sodium Chloride 0.9% 10 ML Syringe FLUSH PRN (12:06)
[2020-05-14] MEDS ORDERED: Polyethylene Glycol 3350 Powder 17 GM Packet PO PRN (12:06)
--- NOTE | 2020-05-14 12:12 | PCM.HP.2 ---
H&P History of Present Illness - General Date of Service: 05/14/20 Admit Problem/Dx: Admission Diagnosis/Problem Admission Diagnosis/Problem Pneumonia Source of Information: Patient, Family, Provider, RN Notes Reviewed History Limitations: Reports: No Limitations - History of Present Illness Initial Comments - Free Text/Narative: Mr. Solano is a 29-year-old gentleman who was admitted as a direct admission from the clinic for evaluation and management of right upper lobe pneumonia. He is status post liver transplantation done in September 2019. He was doing well until about a week ago when he began to experience gastrointestinal symptoms including nausea, vomiting, diarrhea, and cramping abdominal pain. Those symptoms for the most part have resolved but he is now developed a dry nonproductive cough with mild shortness of breath. He was seen and evaluated in the clinic today, chest x-ray shows a right upper lobe infiltrate. Vital signs have been stable and he has been afebrile, no evidence of underlying sepsis. - Related Data Allergies/Adverse Reactions: Allergies Allergy/AdvReac Type Severity Reaction Status Date / Time omeprazole [From Prilosec] Allergy Intermediate Burning Verified 05/14/20 12:08 Home Medications: Home Meds Magnesium Chloride [Mag Delay] 64 mg PO DAILY 05/14/20 [History] Mycophenolate Sodium [Mycophenolic Acid] 180 mg PO BID 05/14/20 [History] Sertraline HCl [Zoloft] 200 mg PO DAILY 05/14/20 [History] Tacrolimus [Prograf] 4 mg PO BID 05/14/20 [History] Past Medical History Cardiovascular History: Reports: Blood Clots/VTE/DVT Respiratory History: Reports: Asthma Neurological History: Reports: Concussion, Migraines Psychiatric History: Reports: Addiction, Anxiety, Depression Hematologic History: Reports: Anticoagulation Therapy - Infectious Disease History Infectious Disease History: Reports: Chicken Pox - Past Surgical History Musculoskeletal Surgical History: Reports: Other (See Below) Other Musculoskeletal Surgeries/Procedures:: Left ACL reconstruction Social & Family History - Family History Family Medical History: Noncontributory Cardiac: Reports: Arrhythmia Other Cardiac Family History: Ablation Respiratory: Reports: Asthma Psychiatric: Reports: Anxiety - Tobacco Use Smoking Status *Q: Former Smoker Years of Tobacco use: 8 Packs/Tins Daily: 0.5 Used Tobacco, but Quit: Yes Month/Year Tobacco Last Used: 1 month ago Second Hand Smoke Exposure: No - Caffeine Use Caffeine Use: Reports: Soda - Recreational Drug Use Recreational Drug Use: Yes Drug Use in Last 12 Months: Yes Recreational Drug Type: Reports: Marijuana/Hashish Recreational Drug Use Frequency: Weekly H&P Review of Systems - Review of Systems: Review Of Systems: See Below General: Reports: Malaise, Weakness, Fatigue, Decreased Appetite. Denies: Feve r, Chills HEENT: Reports: No Symptoms Pulmonary: Reports: Shortness of Breath, Cough. Denies: Wheezing, Pleuritic Chest Pain, Sputum, Hemoptysis Cardiovascular: Reports: Dyspnea on Exertion. Denies: Chest Pain, Palpitations, Orthopnea, PND, Edema, Lightheadedness Gastrointestinal: Reports: No Symptoms Genitourinary: Reports: No Symptoms Musculoskeletal: Reports: No Symptoms Skin: Reports: No Symptoms Psychiatric: Reports: No Symptoms Neurological: Reports: Headache. Denies: Numbness, Paresthesia, Pre-Existing Deficit Hematologic/Lymphatic: Reports: No Symptoms Immunologic: Reports: No Symptoms Exam - Exam Exam: See Below - Vital Signs Vital Signs: Last Vital Signs Temp 97 F 05/14/20 11:55 Pulse 68 05/14/20 11:55 Resp 23 H 05/14/20 11:55 BP 118/68 05/14/20 11:55 Pulse Ox 97 05/14/20 11:55 Weight: 297 lb 9.6 oz - Exam Quality Assessment: DVT Prophylaxis General: Alert, Oriented, Cooperative, Mild Distress HEENT: Conjunctiva Clear, Hearing Intact, Normal Nasal Septum, Posterior Pharynx Clear, Pupils Equal. No: Mucosa Moist & [place] Neck: Supple, Trachea Midline, +2 Carotid Pulse wo Bruit Lungs: Clear to Auscultation, Normal Respiratory Effort Cardiovascular: Regular Rate, Regular Rhythm, Normal S1, Normal S2. No: Systolic Murmur, Diastolic Murmur GI/Abdominal Exam: Soft, Non-Tender, No Organomegaly, No Distention Back Exam: Normal Inspection, Full Range of Motion Extremities: Non-Tender, No Pedal Edema Skin: Warm, Dry, Intact Neurological: Cranial Nerves Intact, Strength Equal Bilateral, Normal Speech, Normal Tone, Sensation Intact. No: Focal Deficit Neuro Extensive - Mental Status: Alert, Oriented x3, Normal Mood/Affect, Normal Cognition, Memory Intact - Patient Data Result Diagrams: 05/14/20 12:29 05/14/20 12:29 Sepsis Event Note - Focused Exam Vital Signs: Vital Signs Temp Pulse Resp BP Pulse Ox 05/14/20 11:55 97 F 68 23 H 118/68 97 Date Exam was Performed: 05/14/20 Time Exam was Performed: 15:25 *Q Meaningful Use (ADM) - VTE Risk Assess *Q Each Risk Factor Represents 1 Point: Obesity ( BMI > 25 kg/m2), Serious lung disease including pneumonia Total Score 1 Point Risk Factors: 2 Each Risk Factor Represents 2 Points: None Total Score 2 Point Risk Factors: 0 Each Risk Factor Represents 3 Points: History of DVT/PE Total Score 3 Point Risk Factors: 3 Each Risk Factor Represents 5 Points: None Total Score 5 Point Risk Factors: 0 Venous Thromboembolism Risk Factor Score *Q: 5 Problem List Initiated/Reviewed/Updated: Yes Orders Last 24hrs: Active Orders 24 hr Category Date Time Status Patient Status [ADT] Routine ADT 05/14/20 12:06 Active Ambulate [RC] QID Care 05/14/20 12:06 Active Cardiac Monitoring [RC] .As Directed Care 05/14/20 12:07 Active Height and Weight [RC] DAILY Care 05/14/20 12:06 Active Intake and Output [RC] QSHIFT Care 05/14/20 12:06 Active Notify Provider Vital Signs [RC] ASDIRECTED Care 05/14/20 12:06 Active Oxygen Therapy [RC] PRN Care 05/14/20 12:06 Active Peripheral IV Care [RC] . DIRECTED Care 05/14/20 12:08 Active Pulse Oximetry [RC] CONTINUOUS Care 05/14/20 12:07 Active RT Aerosol Therapy [RC] ASDIRECTED Care 05/14/20 12:08 Active Up ad Radha [RC] ASDIRECTED Care 05/14/20 12:06 Active Up to Chair [RC] QID Care 05/14/20 12:06 Active VTE/DVT Education [RC] Per Unit Routine Care 05/14/20 12:06 Active Vital Signs [RC] Q4H Care 05/14/20 12:06 Active Regular Diet [DIET] Diet 05/14/20 Lunch Active BASIC METABOLIC PANEL,BMP [CHEM] Timed Lab 05/15/20 05:00 Ordered CBC WITH AUTO DIFF [HEME] AM Lab 05/15/20 05:11 Ordered CBC WITH AUTO DIFF [HEME] Stat Lab 05/14/20 12:06 Ordered COMPREHENSIVE METABOLIC PN,CMP [CHEM] Stat Lab 05/14/20 12:06 Ordered CULTURE BLOOD [BC] Stat Lab 05/14/20 12:06 Ordered CULTURE BLOOD [BC] Stat Lab 05/14/20 12:06 Ordered CULTURE RESPIRATORY + SMEAR [RM] Stat Lab 05/14/20 12:06 Ordered MAGNESIUM [CHEM] Stat Lab 05/14/20 12:06 Ordered Acetaminophen [Tylenol] Med 05/14/20 12:06 Ordered 650 mg PO Q4H PRN Albuterol [Proventil Neb Soln] Med 05/14/20 12:06 Ordered 2.5 mg NEB Q4H PRN Lactobacillus Rhamnosus GG [Culturelle] Med 05/14/20 12:15 Ordered 1 cap PO BID Ondansetron [Zofran] Med 05/14/20 12:06 Ordered 4 mg IV Q4H PRN Piperacillin/Tazobactam [Zosyn] 3.375 gm Med 05/14/20 12:15 Ordered Sodium Chloride 0.9% [Normal Saline] 50 ml IV Q6H Sodium Chloride 0.9% [Normal Saline] 1,000 ml Med 05/14/20 12:15 Ordered IV ASDIRECTED Sodium Chloride 0.9% [Saline Flush] Med 05/14/20 12:06 Ordered 10 ml FLUSH ASDIRECTED PRN Vancomycin Med 05/14/20 13:00 Ordered 1 gm IV .PHARMACY TO DOSE polyethylene glycoL 3350 [MiraLAX] Med 05/14/20 12:06 Ordered 17 gm PO DAILY PRN Blood Culture x2 Reflex Set [OM.PC] Stat Oth 05/14/20 12:08 Ordered Peripheral IV Insertion Adult [OM.PC] Routine Oth 05/14/20 12:06 Ordered Resuscitation Status Routine Resus Stat 05/14/20 12:06 Ordered Medication Orders Acetaminophen (Tylenol) 650 mg PO Q4H PRN PRN Reason: Pain (Mild 1-3)/fever Albuterol (Proventil Neb Soln) 2.5 mg NEB Q4H PRN PRN Reason: Shortness Of Breath/wheezing Sodium Chloride (Normal Saline) 1,000 mls @ 125 mls/hr IV ASDIRECTED IWLLIAM Piperacillin Sod/Tazobactam (Sod 3.375 gm/ Sodium Chloride) 50 mls @ 100 mls/hr IV Q6H WILLIAM Lactobacillus Rhamnosus (Culturelle) 1 cap PO BID WILLIAM Ondansetron HCl (Zofran) 4 mg IV Q4H PRN PRN Reason: Nausea/Vomiting Polyethylene Glycol (Miralax) 17 gm PO DAILY PRN PRN Reason: Constipation Sodium Chloride (Saline Flush) 10 ml FLUSH ASDIRECTED PRN PRN Reason: Keep Vein Open Vancomycin HCl (Vancomycin) 1 gm IV .PHARMACY TO DOSE WILLIAM Assessment/Plan Comment:: ASSESSMENT AND PLAN RIGHT UPPER LOBE PNEUMONIA-complicated by immune compromise, status post liver transplant on antirejection medication. COVID-19 test has been obtained at the clinic and is pending at this time. White blood cell count is noted to be elevated with obvious infiltrate on chest x-ray. No evidence of underlying sepsis at the present time. -IV fluids for hydration -Blood and sputum cultures pending -IV vancomycin and Zosyn pending culture results -Nebulized albuterol as needed STATUS POST LIVER TRANSPLANT-secondary to alcoholic cirrhosis -Continue antirejection medications during hospitalization HISTORY OF DEEP VEIN THROMBOSIS -Lovenox 40 mg subcu daily MAINTENANCE ISSUES -DVT prophylaxis; Lovenox as above -GI prophylaxis; not indicated -Jimenez catheter; not indicated -Nutrition; regular diet -Nicotine dependence; not required CODE STATUS-FULL CODE ADMISSION STATUS-patient will be admitted to inpatient status, expect at least a 2 night hospital stay for evaluation and management of problems as outlined above. At the time of this admission I do not reasonably expected evaluation and management of this problem will require more than a 96 hour hospital stay. DISPOSITION-anticipate discharge to home after the hospital stay. PRIMARY CARE PROVIDER-Dr. Booth - Mortality Measure Prognosis:: Good
[2020-05-14] MEDS ORDERED: Sodium Chloride 0.9% 1,000 ML IV SCH (12:15)
[2020-05-14] MEDS ORDERED: Lactobacillus Rhamnosus GG (Probiotic) Cap PO SCH (12:30)
[2020-05-14] MEDS ORDERED: Vancomycin 1 GM SDV IV SCH (13:00)
[2020-05-14] MEDS: Piperacillin/Tazobactam/Dext 3.375 GM in Premix Bag 1 BAG IV SCH ×2 (13:14→18:53)
[2020-05-14] MEDS ORDERED: Potassium Chloride 20 MEQ Tab.ER PO ONE (13:30)
[2020-05-14] MEDS ORDERED: Magnesium Oxide 400 MG Tab PO SCH (13:30)
[2020-05-14] MEDS ORDERED: Vancomycin 2 GM in Sodium Chloride 0.9% 500 ML IV SCH (14:00)
[2020-05-14] MEDS ORDERED: Magnesium Sulfate/Water 2 GM in Premix Bag 1 BAG IV ONE (14:00)
[2020-05-14] MEDS ORDERED: Enoxaparin 40 MG/0.4 ML Syringe SUBCUT SCH (15:00)
--- NOTE | 2020-05-14 17:27 | PCM.DCSUM1 ---
Discharge Summary - Hospital Course Brief History: Mr. Solano is a 29 year old, status post liver transplant, who was admitted as a direct admission from the clinic for management of right upper lobe pneumonia. - Discharge Data Discharge Date: 05/14/20 Discharge Disposition: DC/Tfer to Acute Hospital 02 Condition: Serious - Referral to Home Health Date of Face to Face Encounter: 05/14/20 Primary Care Physician: Nora Booth MD - Discharge Diagnosis/Problem(s) (1) Liver transplant recipient SNOMED Code(s): 943673567 ICD Code: Z94.4 - LIVER TRANSPLANT STATUS Status: Acute Current Visit: Yes (2) Pneumonia SNOMED Code(s): 308478268 ICD Code: J18.9 - PNEUMONIA, UNSPECIFIED ORGANISM Status: Acute Current Visit: Yes - Patient Summary/Data Hospital Course: Mr. Solano is a 29-year-old gentleman who was admitted as a direct admission from the clinic for evaluation and management of right upper lobe pneumonia. He is status post liver transplantation done in September 2019. He was doing well until about a week ago when he began to experience gastrointestinal symptoms including nausea, vomiting, diarrhea, and cramping abdominal pain. Those symptoms for the most part have resolved but he has now developed a dry nonproductive cough with mild shortness of breath. He was seen and evaluated in the clinic today, chest x-ray shows a right upper lobe infiltrate. Vital signs have been stable and he has been afebrile, no evidence of underlying sepsis. On admission laboratory studies were obtained and he was found to have elevated white blood cell count of 19,000, lactic acid was within normal range and there was no evidence of associated sepsis. Blood cultures were obtained and because of his immune compromised status he was started on broad-spectrum IV antibiotic therapy with vancomycin and Zosyn. After admission further discussions were held with the transplant team at the [facility], Dr. Simeon has requested that the patient be transferred there for further subspecialty care and management. He will be transferred to the [facility] via [facility] ambulance. - Patient Instructions Diet: Usual Diet as Tolerated Activity: As Tolerated Other/Special Instructions: Patient will be transferred to the [facility] in [facility] for further subspecialty care concerning his liver transplant and current pneumonia. - Discharge Plan *PRESCRIPTION DRUG MONITORING PROGRAM REVIEWED*: Not Applicable *COPY OF PRESCRIPTION DRUG MONITORING REPORT IN PATIENT JOSE: Not Applicable Home Medications: Home Meds Lactobacillus Rhamnosus GG [Culturelle] 1 cap PO BID cap 05/14/20 [Rx] Magnesium Chloride [Mag Delay] 64 mg PO DAILY 05/14/20 [History] Mycophenolate Sodium [Mycophenolic Acid] 180 mg PO BID 05/14/20 [History] Piperacillin/Tazobactam/Dext [Zosyn in Dextrose Iso-Osmotic 3.375 GM] 3.375 gm IV Q6H bag 05/14/20 [Rx] Sertraline HCl [Zoloft] 200 mg PO DAILY 05/14/20 [History] Tacrolimus [Prograf] 4 mg PO BID 05/14/20 [History] Vancomycin 2 gm IV Q12H sdv 05/14/20 [Rx] - Discharge Summary/Plan Comment DC Time >30 min.: No - Patient Data Vitals - Most Recent: Last Vital Signs Temp 98.5 F 05/14/20 12:00 Pulse 69 05/14/20 12:00 Resp 16 05/14/20 12:00 BP 118/68 05/14/20 12:00 Pulse Ox 97 05/14/20 12:07 Weight - Most Recent: 297 lb 9.6 oz Lab Results - Last 24 hrs: Laboratory Results - last 24 hr 05/14/20 05/14/20 05/14/20 Range/Units 12:29 12:29 15:33 WBC 19.9 H (4.5-11.0) K/uL RBC 4.32 (4.30-5.90) M/uL Hgb 11.2 L (12.0-15.0) g/dL Hct 33.3 L (40.0-54.0) % MCV 77 L (80-98) fL MCH 26 L (27-31) pg MCHC 34 (32-36) % Plt Count 417 H (150-400) K/uL Neut % (Auto) 87 H (36-66) % Lymph % (Auto) 6 L (24-44) % [place] % (Auto) 6 (2-6) % Eos % (Auto) 0 L (2-4) % Baso % (Auto) 0 (0-1) % Sodium 136 L (140-148) mmol/L Potassium 3.6 (3.6-5.2) mmol/L Chloride 104 (100-108) mmol/L Carbon Dioxide 21 (21-32) mmol/L Anion Gap 14.6 H (5.0-14.0) mmol/L BUN 17 (7-18) mg/dL Creatinine 1.9 H D (0.8-1.3) mg/dL Est Cr Clr Drug Dosing 69.80 mL/min Estimated GFR (MDRD) 43 L (>60) Glucose 110 H (74-106) mg/dL Lactic Acid 1.0 (0.4-2.0) mmol/L Calcium 8.5 (8.5-10.1) mg/dL Magnesium 1.7 L (1.8-2.4) mg/dL Total Bilirubin 0.4 D (0.2-1.0) mg/dL AST 18 D (15-37) U/L ALT 21 D (12-78) U/L Alkaline Phosphatase 154 H (46-116) U/L Total Protein 6.8 (6.4-8.2) g/dL Albumin 2.8 L (3.4-5.0) g/dL Globulin 4.0 H (2.3-3.5) g/dL Albumin/Globulin Ratio 0.7 L (1.2-2.2) SARS Virus RNA (PCR) (NEGATIVE) 05/14/20 Range/Units 15:44 WBC (4.5-11.0) K/uL RBC (4.30-5.90) M/uL Hgb (12.0-15.0) g/dL Hct (40.0-54.0) % MCV (80-98) fL MCH (27-31) pg MCHC (32-36) % Plt Count (150-400) K/uL Neut % (Auto) (36-66) % Lymph % (Auto) (24-44) % [place] % (Auto) (2-6) % Eos % (Auto) (2-4) % Baso % (Auto) (0-1) % Sodium (140-148) mmol/L Potassium (3.6-5.2) mmol/L Chloride (100-108) mmol/L Carbon Dioxide (21-32) mmol/L Anion Gap (5.0-14.0) mmol/L BUN (7-18) mg/dL Creatinine (0.8-1.3) mg/dL Est Cr Clr Drug Dosing mL/min Estimated GFR (MDRD) (>60) Glucose (74-106) mg/dL Lactic Acid (0.4-2.0) mmol/L Calcium (8.5-10.1) mg/dL Magnesium (1.8-2.4) mg/dL Total Bilirubin (0.2-1.0) mg/dL AST (15-37) U/L ALT (12-78) U/L Alkaline Phosphatase (46-116) U/L Total Protein (6.4-8.2) g/dL Albumin (3.4-5.0) g/dL Globulin (2.3-3.5) g/dL Albumin/Globulin Ratio (1.2-2.2) SARS Virus RNA (PCR) Negative (NEGATIVE) Med Orders - Current: Current Medications Acetaminophen (Tylenol) 650 mg PO Q4H PRN PRN Reason: Pain (Mild 1-3)/fever Albuterol (Proventil Neb Soln) 2.5 mg NEB Q4H PRN PRN Reason: Shortness Of Breath/wheezing Enoxaparin Sodium (Lovenox) 40 mg SUBCUT Q24H [facility] Last Admin: 05/14/20 14:35 Dose: 40 mg Documented by: Sodium Chloride (Normal Saline) 1,000 mls @ 125 mls/hr IV ASDIRECTED [facility] Last Admin: 05/14/20 13:00 Dose: 125 mls/hr Documented by: Piperacillin/Tazobactam/ (Dextrose 3.375 gm/ Premix) 50 mls @ 100 mls/hr IV Q6H [facility] Last Admin: 05/14/20 13:14 Dose: 100 mls/hr Documented by: Vancomycin HCl 2 gm/ Sodium (Chloride) 500 mls @ 250 mls/hr IV Q12H [facility] Last Admin: 05/14/20 14:31 Dose: 250 mls/hr Documented by: Lactobacillus Rhamnosus (Culturelle) 1 cap PO BID [facility] Last Admin: 05/14/20 13:17 Dose: 1 cap Documented by: Magnesium Oxide (Magnesium Oxide) 400 mg PO BID [facility] Last Admin: 05/14/20 13:28 Dose: 400 mg Documented by: Ondansetron HCl (Zofran) 4 mg IV Q4H PRN PRN Reason: Nausea/Vomiting Mycophenolate Er (180mg Tab (Ptom)) 0 each PO BID [facility] Polyethylene Glycol (Miralax) 17 gm PO DAILY PRN PRN Reason: Constipation Sertraline HCl (Zoloft) 200 mg PO DAILY [facility] Sodium Chloride (Saline Flush) 10 ml FLUSH ASDIRECTED PRN PRN Reason: Keep Vein Open Tacrolimus (Prograf) 4 mg PO BID WILLIAM Discontinued Medications Magnesium Sulfate 2 gm/ Premix 50 mls @ 25 mls/hr IV ONETIME ONE Stop: 05/14/20 15:59 Last Admin: 05/14/20 16:35 Dose: 25 mls/hr Documented by: Potassium Chloride (Klor-Con M20) 40 meq PO ONETIME ONE Stop: 05/14/20 13:31 Last Admin: 05/14/20 13:28 Dose: 40 meq Documented by: Vancomycin HCl (Vancomycin) 1 gm IV .PHARMACY TO DOSE WILLIAM Stop: 05/14/20 13:01 - Exam Quality Assessment: Reports: DVT Prophylaxis General: Reports: Alert, Oriented, Cooperative, Mild Distress Lungs: Reports: Clear to Auscultation, Normal Respiratory Effort Cardiovascular: Reports: Regular Rate, Regular Rhythm, No Murmurs GI/Abdominal Exam: Soft, Non-Tender, No Organomegaly, No Distention Extremities: Non-Tender, No Pedal Edema
[2020-05-14 19:06] VITALS: BP 118/64; PULSE 78
[2020-05-14] MEDS ORDERED: MYCOPHENOLATE 180 MG PO SCH (21:00)
[2020-05-14] MEDS ORDERED: MYCOPHENOLATE SODIUM 180 MG PO SCH (21:00)
[2020-05-14] MEDS ORDERED: Tacrolimus 1 MG Cap PO SCH (21:00)
[2020-05-15] MEDS ORDERED: Non-Formulary Medication 1 Each (Sertraline Hcl [Zoloft] 200 MG) PO SCH (09:00)
[2020-05-15] MEDS ORDERED: Sertraline 50 MG Tab PO SCH (09:00)
== END 2020-05-14 19:23 | DRG 194 ==
LOC: JP.ICU 11:48
PROVIDERS: ADMIT Hospitalist; ATTEND Hospitalist
DX: J18.9 Pneumonia, unspecified organism (principal); Z94.4 Liver transplant status; J45.909 Unspecified asthma, uncomplicated; F41.9 Anxiety disorder, unspecified; F32.9 Major depressive disorder, single episode, unspecified; K70.30 Alcoholic cirrhosis of liver without ascites; Z11.59 Encounter for screening for other viral diseases; Z79.01 Long term (current) use of anticoagulants; Z86.718 Personal history of other venous thrombosis and embolism; Z79.899 Other long term (current) drug therapy; Z87.891 Personal history of nicotine dependence
CPT/HCPCS: 36415; 80053; 83605; 83735; 85025; 87040; A9270-GY; J1650; J2405; J2543; J3370; J3475; J7030; J7040; U0002

== ENCOUNTER 2020-08-03 12:03 | Emergency (ER) | payer MEDICAID ==
[2020-08-03] MEDS ORDERED: Sodium Chloride 0.9% 10 ML Syringe FLUSH PRN (12:13)
[2020-08-03] MEDS ORDERED: Sodium Chloride 0.9% 1,000 ML IV SCH (12:15)
--- NOTE | 2020-08-03 12:37 | EDM.PDOC ---
ED HPI GENERAL MEDICAL PROBLEM - General Chief Complaint: Respiratory Problem Stated Complaint: SHORTNESS OF BREATH Time Seen by Provider: 08/03/20 12:20 Source of Information: Reports: Patient History Limitations: Reports: No Limitations - History of Present Illness INITIAL COMMENTS - FREE TEXT/NARRATIVE: pt arrived with increasing sob. He has had close contact with someone who had covid 19. His mother has been quarntined for 10 days. He has not had a fever. He does have some increased muscle pain. He feels like his taste and smell have been affected. He has been alot more sob for the past 2 days. He recentlyu was treated for blastomycosis and he was sob at that time. Onset: Other (last 2 days, worse today. ) Duration: Hour(s): Location: Reports: Chest, Other (pt is very sob with low O2 sats. ) Associated Symptoms: Reports: Cough, Shortness of Breath Bilateral Leg Pain Score (Numeric/FACES): 6 - Related Data Allergies Allergy/AdvReac Type Severity Reaction Status Date / Time omeprazole [From Prilosec] Allergy Intermediate Burning Verified 08/03/20 14:42 Home Meds: Home Meds Magnesium Chloride [Mag Delay] 64 mg PO DAILY 05/14/20 [History] Sertraline HCl [Zoloft] 200 mg PO DAILY 05/14/20 [History] Tacrolimus [Prograf] 4 mg PO BID 05/14/20 [History] Ferrous Sulfate 325 mg PO DAILY 08/03/20 [History] Itraconazole 200 mg PO BID 08/03/20 [History] Itraconazole 300 mg PO BEDTIME 08/03/20 [History] Past Medical History Cardiovascular History: Reports: Blood Clots/VTE/DVT Respiratory History: Reports: Asthma Other Respiratory History: asthma possible with exercise. Neurological History: Reports: Concussion, Migraines Psychiatric History: Reports: Addiction, Anxiety, Depression Hematologic History: Reports: Anticoagulation Therapy - Infectious Disease History Infectious Disease History: Reports: Chicken Pox - Past Surgical History Musculoskeletal Surgical History: Reports: Other (See Below) Other Musculoskeletal Surgeries/Procedures:: Left ACL reconstruction Social & Family History - Family History Family Medical History: Noncontributory Cardiac: Reports: Arrhythmia Other Cardiac Family History: Ablation Respiratory: Reports: Asthma Psychiatric: Reports: Anxiety - Caffeine Use Caffeine Use: Reports: Soda ED ROS GENERAL - Review of Systems Review Of Systems: See Below Constitutional: Reports: Malaise, Weakness HEENT: Reports: No Symptoms, Other (pt has loss of his tste and smell, partially. ) Respiratory: Reports: Shortness of Breath, Cough Cardiovascular: Reports: No Symptoms Endocrine: Reports: No Symptoms GI/Abdominal: Reports: No Symptoms, Other (pt has had slight nausea and has vomited a couple of time. he has had some looser stools. ) : Reports: No Symptoms Musculoskeletal: Reports: Muscle Pain, Other (pt has had pains in the thighs. ) Skin: Reports: No Symptoms ED EXAM, GENERAL - Physical Exam Exam: See Below Free Text/Narrative:: pt arrived with increased sob. With any activity his o2 sats drop in the 80s. He has been recently treated for blastomycoses Exam Limited By: No Limitations General Appearance: Alert, Anxious, Moderate Distress Ears: Normal TMs Nose: Normal Inspection Throat/Mouth: Normal Inspection Head: Atraumatic Neck: Normal Inspection Respiratory/Chest: Respiratory Distress, Other (pt has low 02 sats particularly with any activity. ) Cardiovascular: Regular Rate, Rhythm GI/Abdominal: Soft, Non-Tender (Male) Exam: Deferred Rectal (Males) Exam: Deferred Back Exam: Normal Inspection Extremities: Normal Inspection Neurological: Alert, Oriented, Normal Cognition Psychiatric: Anxious Course - Vital Signs Last Recorded V/S: Last Vital Signs Temp 36.7 C 08/03/20 15:34 Pulse 68 08/03/20 15:34 Resp 26 H 08/03/20 12:36 BP 112/80 08/03/20 15:34 Pulse Ox 96 08/03/20 15:34 - Orders/Labs/Meds Orders: Active Orders 24 hr Category Date Time Status Piperacillin/Tazobactam/Dext [Zosyn in Dextrose Iso- Med 08/03/20 16:00 Active Osmotic 3.375 GM] 3.375 gm Premix Bag 1 bag IV ONETIME Sodium Chloride 0.9% [Normal Saline] 1,000 ml Med 08/03/20 12:15 Active IV ASDIRECTED Sodium Chloride 0.9% [Saline Flush] Med 08/03/20 12:13 Active 10 ml FLUSH ASDIRECTED PRN Vancomycin 2 gm Med 08/03/20 16:30 Active Sodium Chloride 0.9% [Normal Saline] 500 ml IV ONETIME Saline Lock Insert [OM.PC] Routine Oth 08/03/20 12:13 Ordered Medication Orders Sodium Chloride (Normal Saline) 1,000 mls @ 250 mls/hr IV ASDIRECTED WILLIAM Last Admin: 08/03/20 12:34 Dose: 250 mls/hr Documented by: PREILOR Piperacillin/Tazobactam/ (Dextrose 3.375 gm/ Premix) 50 mls @ 100 mls/hr IV ONETIME ONE Stop: 08/03/20 16:29 Vancomycin HCl 2 gm/ Sodium (Chloride) 500 mls @ 250 mls/hr IV ONETIME ONE Stop: 08/03/20 18:29 Sodium Chloride (Saline Flush) 10 ml FLUSH ASDIRECTED PRN PRN Reason: Keep Vein Open Last Admin: 08/03/20 12:35 Dose: 10 ml Documented by: PREILOR Labs: Laboratory Tests 08/03/20 08/03/20 08/03/20 Range/Units 12:28 12:28 12:28 WBC 9.2 (4.5-11.0) K/uL RBC 4.92 (4.30-5.90) M/uL Hgb 12.9 D (12.0-15.0) g/dL Hct 38.3 L (40.0-54.0) % MCV 78 L (80-98) fL MCH 26 L (27-31) pg MCHC 34 (32-36) % Plt Count 250 (150-400) K/uL Neut % (Auto) 65 (36-66) % Lymph % (Auto) 24 (24-44) % [place] % (Auto) 10 H (2-6) % Eos % (Auto) 0 L (2-4) % Baso % (Auto) 0 (0-1) % D-Dimer, Quantitative 1520 H (0.0-400.0) ng/mL Sodium 134 L (140-148) mmol/L Potassium 4.3 (3.6-5.2) mmol/L Chloride 103 (100-108) mmol/L Carbon Dioxide 19 L (21-32) mmol/L Anion Gap 16.3 H (5.0-14.0) mmol/L BUN 19 H (7-18) mg/dL Creatinine 2.2 H (0.8-1.3) mg/dL Est Cr Clr Drug Dosing 59.75 mL/min Estimated GFR (MDRD) 36 L (>60) Glucose 117 H (74-106) mg/dL Calcium 8.9 (8.5-10.1) mg/dL Total Bilirubin 0.4 (0.2-1.0) mg/dL AST 141 H D (15-37) U/L ALT 29 (12-78) U/L Alkaline Phosphatase 137 H (46-116) U/L C-Reactive Protein (0.0-0.3) mg/dL Total Protein 7.1 (6.4-8.2) g/dL Albumin 3.6 (3.4-5.0) g/dL Globulin 3.5 (2.3-3.5) g/dL Albumin/Globulin Ratio 1.0 L (1.2-2.2) Urine Color (YELLOW) Urine Appearance (CLEAR) Urine pH (5.0-8.0) Ur Specific [place] (1.008-1.030) Urine Protein (NEGATIVE) mg/dL Urine Glucose (UA) (NEGATIVE) mg/dL Urine Ketones (NEGATIVE) mg/dL Urine Occult Blood (NEGATIVE) Urine Nitrite (NEGATIVE) Urine Bilirubin (NEGATIVE) Urine Urobilinogen (0.2-1.0) EU/dL Ur Leukocyte Esterase (NEGATIVE) Urine RBC (0-5) Urine WBC (0-5) Ur Epithelial Cells Amorphous Sediment Urine Bacteria Urine Mucus Urine Other SARS CoV-2 RNA Rapid AVRIL 08/03/20 08/03/20 08/03/20 Range/Units 12:28 12:30 13:37 WBC (4.5-11.0) K/uL RBC (4.30-5.90) M/uL Hgb (12.0-15.0) g/dL Hct (40.0-54.0) % MCV (80-98) fL MCH (27-31) pg MCHC (32-36) % Plt Count (150-400) K/uL Neut % (Auto) (36-66) % Lymph % (Auto) (24-44) % [place] % (Auto) (2-6) % Eos % (Auto) (2-4) % Baso % (Auto) (0-1) % D-Dimer, Quantitative (0.0-400.0) ng/mL Sodium (140-148) mmol/L Potassium (3.6-5.2) mmol/L Chloride (100-108) mmol/L Carbon Dioxide (21-32) mmol/L Anion Gap (5.0-14.0) mmol/L BUN (7-18) mg/dL Creatinine (0.8-1.3) mg/dL Est Cr Clr Drug Dosing mL/min Estimated GFR (MDRD) (>60) Glucose (74-106) mg/dL Calcium (8.5-10.1) mg/dL Total Bilirubin (0.2-1.0) mg/dL AST (15-37) U/L ALT (12-78) U/L Alkaline Phosphatase (46-116) U/L C-Reactive Protein 2.47 H (0.0-0.3) mg/dL Total Protein (6.4-8.2) g/dL Albumin (3.4-5.0) g/dL Globulin (2.3-3.5) g/dL Albumin/Globulin Ratio (1.2-2.2) Urine Color Yellow (YELLOW) Urine Appearance Slightly cloudy A (CLEAR) Urine pH 5.5 (5.0-8.0) Ur Specific [place] >= 1.030 (1.008-1.030) Urine Protein 100 H (NEGATIVE) mg/dL Urine Glucose (UA) Negative (NEGATIVE) mg/dL Urine Ketones Negative (NEGATIVE) mg/dL Urine Occult Blood Moderate H (NEGATIVE) Urine Nitrite Negative (NEGATIVE) Urine Bilirubin Moderate H (NEGATIVE) Urine Urobilinogen 0.2 (0.2-1.0) EU/dL Ur Leukocyte Esterase Negative (NEGATIVE) Urine RBC 0-5 (0-5) Urine WBC 0-5 (0-5) Ur Epithelial Cells Few Amorphous Sediment Many Urine Bacteria Rare Urine Mucus Moderate Urine Other SARS CoV-2 RNA Rapid AVRIL Negative Meds: Medications Generic Name Dose Route Start Last Admin Trade Name Freq PRN Reason Stop Dose Admin Sodium Chloride 1,000 mls @ 250 mls/hr 08/03/20 12:15 08/03/20 12:34 Normal Saline IV 250 mls/hr ASDIRECTED WILLIAM Administration Piperacillin/Tazobactam/ 50 mls @ 100 mls/hr 08/03/20 16:00 Dextrose 3.375 gm/ Premix IV 08/03/20 16:29 ONETIME ONE Vancomycin HCl 2 gm/ Sodium 500 mls @ 250 mls/hr 08/03/20 16:30 Chloride IV 08/03/20 18:29 ONETIME ONE Sodium Chloride 10 ml 08/03/20 12:13 08/03/20 12:35 Saline Flush FLUSH 10 ml ASDIRECTED PRN Administration Keep Vein Open - Re-Assessments/Exams Free Text/Narrative Re-Assessment/Exam: 08/03/20 13:53 pt had o2 sat in the 80s. he was placed on 3 liters of o2 and is maintainwell with that. He has a pneumonia on the rt upper lung field. This has been present with the blasto. He does not have a fever.pt has a high Ddimer and his crp is elevated. His covid 19 test is neg. 08/03/20 13:55 Departure - Departure Time of Disposition: 15:37 Disposition: DC/Tfer to [facility] 02 Condition: Fair Clinical Impression: History of liver transplant, Blastomycosis, Hypoxia, Exposure to COVID-19 virus - Discharge Information Referrals: PCP,None [Primary Care Provider] - Forms: ED Department Discharge Care Plan Goals: transfer to [facility] Pt will be transfered to Dr Henderson. Sepsis Event Note (ED) - Focused Exam Vital Signs: Vital Signs Temp Pulse Resp BP Pulse Ox 08/03/20 15:34 36.7 C 68 112/80 96 08/03/20 14:15 74 110/69 96 08/03/20 13:13 87 100/71 96 08/03/20 12:59 85 105/75 92 L 08/03/20 12:36 36.8 C 104 H 26 H 145/103 H 82 L 08/03/20 12:15 36.8 C 104 H 145/103 H 91 L - My Orders Last 24 Hours: My Active Orders 08/03/20 12:13 Sodium Chloride 0.9% [Saline Flush] 10 ml FLUSH ASDIRECTED PRN Saline Lock Insert [OM.PC] Routine 08/03/20 12:15 Sodium Chloride 0.9% [Normal Saline] 1,000 ml IV ASDIRECTED 08/03/20 16:00 Piperacillin/Tazobactam/Dext [Zosyn in Dextrose Iso-Osmotic 3.375 GM] 3.375 gm Premix Bag 1 bag IV ONETIME 08/03/20 16:30 Vancomycin 2 gm Sodium Chloride 0.9% [Normal Saline] 500 ml IV ONETIME - Assessment/Plan Last 24 Hours: My Active Orders 08/03/20 12:13 Sodium Chloride 0.9% [Saline Flush] 10 ml FLUSH ASDIRECTED PRN Saline Lock Insert [OM.PC] Routine 08/03/20 12:15 Sodium Chloride 0.9% [Normal Saline] 1,000 ml IV ASDIRECTED 08/03/20 16:00 Piperacillin/Tazobactam/Dext [Zosyn in Dextrose Iso-Osmotic 3.375 GM] 3.375 gm Premix Bag 1 bag IV ONETIME 08/03/20 16:30 Vancomycin 2 gm Sodium Chloride 0.9% [Normal Saline] 500 ml IV ONETIME
--- NOTE | 2020-08-03 13:34 | CR ---
CHEST: Portable 08/03/2020 at 1:05 PM CLINICAL HISTORY:SOB COMPARISON:2019 FINDINGS: There is patchy density in the right upper lobe and suprahilar region. Heart size and pulmonary vascular normal. Left lung is clear IMPRESSION: Right upper lobe pneumonic infiltrate Follow-up recommended until clear
[2020-08-03] MEDS ORDERED: Vancomycin 2 GM in Sodium Chloride 0.9% 500 ML IV ONE ×2 (15:05→16:30)
[2020-08-03] MEDS ORDERED: Piperacillin/Tazobactam 3.375 GM in Sodium Chloride 0.9% 50 ML IV SCH (15:15)
[2020-08-03 15:35] VITALS: BP 112/80; PULSE 68
[2020-08-03] MEDS ORDERED: Piperacillin/Tazobactam/Dext 3.375 GM in Premix Bag 1 BAG IV ONE (16:00)
== END 2020-08-03 16:16 ==
LOC: JP.ED 12:03
DX: J18.9 Pneumonia, unspecified organism (principal); R09.02 Hypoxemia; Z20.828 Contact with and (suspected) exposure to other viral communicable diseases; B40.9 Blastomycosis, unspecified; R79.1 Abnormal coagulation profile; R79.89 Other specified abnormal findings of blood chemistry; F41.9 Anxiety disorder, unspecified; F32.9 Major depressive disorder, single episode, unspecified; J45.909 Unspecified asthma, uncomplicated; Z94.4 Liver transplant status; Z88.8 Allergy status to other drugs, medicaments and biological substances; Z79.899 Other long term (current) drug therapy
CPT/HCPCS: 36415; 71045; 80053; 81001; 85025; 85379; 86140; 87635; 96365; 96368; 99285; J2543; J3370; J7030; J7040; U0002